=== PATIENT | male | born 1930 | race Caucasian/White ===

== ENCOUNTER 2019-06-18 16:38 | Inpatient (IN) | payer MEDICARE ==
[~2019-06-18] VITALS: Ht 160 cm; Wt 83.4 kg
[2019-06-18] MEDS ORDERED: LISI-538 PO (16:57)
[2019-06-18] MEDS ORDERED: ASPI81TA85 PO (16:57)
[2019-06-18] MEDS ORDERED: DOXY50TA9 PO (16:57)
[2019-06-18] MEDS ORDERED: IBUP-1022 PO (16:57)
[2019-06-18] MEDS ORDERED: SIMV40TA2 PO (16:57)
[2019-06-18] MEDS ORDERED: TERA5CAP3 PO (16:57)
[2019-06-18] MEDS ORDERED: METOCLOPRAMIDE INJ 10MG/2ML VIAL (J2765) IV ONE (17:45)
[2019-06-18] MEDS ORDERED: NS 1,000 ML IV SCH (17:45)
[2019-06-18 17:58] LABS: INR 1.3; PROTHROMBIN TIME 15.9 SECONDS (11.8-14.0)
[2019-06-18] MEDS ORDERED: FISH1000 PO (18:23)
--- NOTE | 2019-06-18 18:39 | REPVR ---
EXAM: CT Head Without Contrast EXAM DATE/TIME: 06/18/2019 6:01 PM CLINICAL HISTORY: 89 years old, male; Pain; Headache; Additional info: AMS TECHNIQUE: Imaging protocol: Computed tomography images of the head without contrast. Radiation optimization: All CT scans at this facility use at least one of these dose optimization techniques: automated exposure control; mA and/or kV adjustment per patient size (includes targeted exams where dose is matched to clinical indication); or iterative reconstruction. COMPARISON: No relevant prior studies available. FINDINGS: Asymmetric left parieto-occipital focal extracranial soft tissue swelling. Prominent ventricles and CSF spaces suggest parenchymal volume loss. No intracranial mass, focal mass effect or midline shift. No acute intracranial hemorrhage. Mild decreased attenuation in periventricular/centrum semiovale white matter. No focal effacement of cortical sulci to indicate acute cortical infarct. No calvarial fracture or destructive process. Left maxillary sinus mucosal thickening is present. Mastoid air cells are normally aerated. Visualized globes and orbits are unremarkable. IMPRESSION: Left parieto-occipital scalp hematoma No acute intracranial abnormality. Atrophy and chronic microangiopathic change in supratentorial white matter. Electronically signed by: Gian Dial On 06/18/2019 18:39:30 PM
--- NOTE | 2019-06-18 18:43 | REPVR ---
EXAM: CT Cervical Spine Without Contrast EXAM DATE/TIME: 06/18/2019 6:01 PM CLINICAL HISTORY: 89 years old, male; Neck pain; Additional info: Fall AMS TECHNIQUE: Imaging protocol: Computed tomography images of the cervical spine without contrast. Coronal and sagittal reformatted images were created and reviewed. Radiation optimization: All CT scans at this facility use at least one of these dose optimization techniques: automated exposure control; mA and/or kV adjustment per patient size (includes targeted exams where dose is matched to clinical indication); or iterative reconstruction. COMPARISON: No relevant prior studies available. FINDINGS: Vertebrae: No traumatic segmental malalignment of cervical spine or craniocervical junction. Vertebral body height is maintained at all levels. No acute fracture. No destructive or blastic cervical spine osseous lesion. Discs/Spinal canal/Neural foramina: Intervertebral disc height is decreased at multiple levels, with typical degenerative pattern and associated endplate, articular pillar and uncovertebral spurs. 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 Prevertebral Space: Prevertebral soft tissues demonstrate no asymmetry. Soft tissues: Unremarkable. Lungs: No concerning abnormality of the imaged lung apices. IMPRESSION: 1. No acute fracture or traumatic subluxation of the cervical spine. 2. Multilevel degenerative disc and articular pillar arthropathy. Electronically signed by: Gian Dial On 06/18/2019 18:42:35 PM
[2019-06-18 18:54] LABS: BASO % 0.1 % (0.0-1.0); EOS % 0.1 % (0.0-3.0); LYMPH # 1.1 10^3/uL (1.5-4.5); LYMPH % 6.2 % (24.0-44.0); MEAN CORPUSCULAR HEMOGLOBIN 31.3 pg (27.0-33.0); MEAN CORPUSCULAR HGB CONC 32.6 g/dl (32.0-36.5); MEAN CORPUSCULAR VOLUME 96.2 fl (80.0-96.0); MONO # 1.7 10^3/uL (0.0-0.8); MONO % 9.5 % (0.0-5.0); NEUTROPHILS # 14.6 10^3/uL (1.8-7.7); NEUTROPHILS % 83.6 % (36.0-66.0); PLATELET COUNT, AUTOMATED 243 10^3/uL (150-450); RED BLOOD COUNT 4.47 10^6/uL (4.30-6.10); WHITE BLOOD COUNT 17.5 10^3/uL (4.0-10.0)
[2019-06-18 19:54] LABS: ALBUMIN 3.2 GM/DL (3.2-5.2); ALT/SGPT 57 U/L (12-78); BILIRUBIN,DIRECT 0.1 MG/DL (0.0-0.2); BILIRUBIN,TOTAL 0.4 MG/DL (0.2-1.0); BLOOD UREA NITROGEN 135 MG/DL (7-18); CALCIUM LEVEL 8.5 MG/DL (8.8-10.2); CARBON DIOXIDE LEVEL 16 MEQ/L (21-32); CHLORIDE LEVEL 115 MEQ/L (98-107); CK-MB VALUE MASS 40.7 NG/ML (<3.6); CPK CREATINE PHOSPHOKINASE 3840 U/L (39-308); GLOMERULAR FILTRATION RATE 6.5 (>35); GLUCOSE, FASTING 103 MG/DL (70-100); MB/CK RELATIVE INDEX 1.06 (< OR =4); POTASSIUM SERUM 5.6 MEQ/L (3.5-5.1); SODIUM LEVEL 146 MEQ/L (136-145); TOTAL PROTEIN 7.3 GM/DL (6.4-8.2); TROPONIN I < 0.02 NG/ML (< 0.10)
--- NOTE | 2019-06-18 20:34 | HPEPDOC ---
[facility] Medical History & Physical Date of Admission Jun 18, 2019 Date of Service: Jun 18, 2019 Primary Care Physician: VICKI MURCIA MD [facility] Attending Physician: PURNIMA ANTONY MD History and Physical Time of service 10:45 PM CHIEF COMPLAINT: Fall HISTORY OF PRESENT ILLNESS: Mr. Richardson is an 81 atrial male who was brought to the ED by the ambulance after his neighbors found him on the ground. According to his daughter he likely had a fall sometime in between 8 and 9 AM this morning, which is a time but usually goes into the shower, and was found on the shower floor covered with emesis and urine about 6 hours later. Though he has lapses in his memory regarding the events that occurred earlier on today, the patient remembers tripping, hitting his head on one of the stairs going into the shower, and not being able to get up. The patient lives on his own, at his baseline he ambulates with a rolling walker. He denies having any abdominal pain, headaches, dizziness, upper respiratory tract symptoms, nausea, vomiting, diarrhea, chest pain, fevers, chills, peters dizziness yesterday over the last few days. REVIEW OF SYSTEMS: 12 point review of systems negative except as listed in HPI PAST MEDICAL /SURGICAL HISTORY: 1. Chronic hypertension. 2. Osteoarthritis/chronic back pain/unsteady gait. 3. Hearing loss. 4. Other medical problems, which the family is unable to name but they denied knowledge that the patient has DM, CAD, or CVD 5. BPH ? 6. Early Dementia SOCIAL HISTORY: Independent with ADLs. Require some assistance with IADLs. Lives in a seniors building independently half of the year and then moves to [place] with his daughter for the other half of the year Quit smoking in the 50s FAMILY HISTORY: CAD Alzheimer's. Stomach cancer. Diabetes ALLERGIES: Please see below. HOME MEDICATIONS: Please see below. PHYSICAL EXAMINATION: VITAL SIGNS: Temperature 90.7, pulse 100, respiratory rate 20, blood pressure 107/53, pulse oximetry 99% on room air GENERAL APPEARANCE: Well-nourished, well-developed, appears stated age, not in apparent distress HEENT: Normocephalic, atraumatic, mucous membranes slightly dry CARDIOVASCULAR: Heart rate has regular rate and rhythm. There are no murmurs, rubs or gallops. Radial pulses are intact. The extremities are warm and well- perfused. There is no lower extremity edema LUNGS: She is not using accessory muscles, there is normal air entry bilaterally, the lungs are clear to auscultation bilaterally on room air ABDOMEN: There are positive bowel sounds, the abdomen is soft and nontender on palpation MUSCULOSKELETAL: Range of motion is intact in all 4 extremities NEUROLOGICAL: Cranial nerves II-12 are grossly intact except for auditory nerves, speech is not dysarthric PSYCHIATRIC: The patient is alert and oriented to person and place but not time. He thinks it's February and is not able to name the year. He is able to understand and follow all commands, but requires frequent prompting which his family attributes to not having his hearing aids in LABORATORY DATA: CBC is remarkable for WBC count of 17.5 Chemistries remarkable for sodium of 146, potassium of 5.6, chloride 115, carbon dioxide of 16, BUN of 135, creatinine of 8.3, GFR of 6.5, glucose of 103, calcium of 8.5, AST 105, and CK of greater than 3800. IMAGING: CT of the head showed " Left parieto-occipital scalp hematoma. No acute intracranial abnormality. Atrophy and chronic microangiopathic change in supratentorial white matter." CT of the cervical spine showed " 1. No acute fracture or traumatic subluxation of the cervical spine. 2. Multilevel degenerative disc and articular pillar arthropathy." Chest x-ray was personally visualized and showed an obesity at the left upper lobe, but the final read is pending MICROBIOLOGY: Please see below. ASSESSMENT: Mr. Richardson is an 89-year-old male with a past medical history of chronic hypertension, chronic osteoarthritis with unsteady gait, and hearing loss will be admitted for management of acute renal failure secondary to rhabdomyolysis after having a mechanical fall. PLAN: 1. Left parietal occipital hematoma 2/2 Mechanical Fall At his baseline the patient has Unsteady Gait & OA CT of the head and cervical spine were reviewed Plan: Admit to PCU/ /fall precautions/ physical therapy consult to determine if he needs inpatient rehabilitation versus placement in an assisted living fac ility 2. AMS - resolving According to the patient's family has early dementia, shuffling gait and urinary continence Immediately after the fall earlier on today he seemed slightly slower mentally , but this is resolving CT of the head did not mention hydrocephalus. Plan: frequent neuro checks / can follow-up with PCP for Neurocognitive testing ie MoCA 3. Acute Renal Failure 2/2 Rhabdomyolysis It is unclear if the patient has CKD The only other creatinine in our EMR is 1.1 in February 2010 The creatinine today is 8.30, BUN is under 35, GFR 6.5, calcium is 8.5 The UA did not show proteinuria or hyaline casts The urine drug screen is unremarkable Plan: continue with IVF / f/u Phosphorous, 25 Vitamin D, Hepatitis Panel, PTH, Ulytes for FENa, UPro:Cr ratio, ulytes for FENa, renal US / hold ACEIs / the day time team can attempt to obtain records from the patient's PCP and decide if a Nephrology consult is warranted pending repeat BMP and CPK in the morning 4. Mild Hyperkalemia 2/2 MURIEL EKG did not mention peaked T waves Plan: Telemetry / treat MURIEL / f/u repeat BMP in the morning 5.Lactic acidosis 2/2 likely 2/2 reduced clearance due to renal dysfunction Plan: IVF / f/u repeat lactic acid 6. Possible UTI / Urinary Incontinence Has leukocytosis UA + for WBCs and Leuk esterase Plan: will ask nursing staff to place a [place] catheter / Levofloxacin 250mg IV Q48H / f/u UCx / c/w alpha agonist for possible BPH ? 7. Chronic HTN Plan: c/w home meds 8.Dementia Patient also has hearing loss and impaired vision which predispose him to disorientation/delerium during this hospital admission Plan: family will bring the patient's hearing aides and glasses tomorrow morning DVT Px w Heparin Dispo: possible placement in assited living facility vs NH pending clinical course Vital Signs Vital Signs Date Time Temp Pulse Resp B/P (MAP) Pulse Ox O2 Delivery O2 Flow Rate FiO2 06/18/19 20:15 98 112/59 (76) 98 06/18/19 19:15 20 Room Air 06/18/19 17:28 97.0 Laboratory Data Labs 24H Laboratory Tests 2 06/18/19 17:12: Prothrombin Time 15.9H, Prothromb Time International Ratio 1.30 06/18/19 17:35: Bedside Glucose (Misc Panel) 99 06/18/19 18:47: Immature Granulocyte % (Auto) 0.5, White Blood Count 17.5H, Red Blood Count 4. 47, Hemoglobin 14.0, Hematocrit 43.0, Mean Corpuscular Volume 96.2H, Mean Corpuscular Hemoglobin 31.3, Mean Corpuscular Hemoglobin Concent 32.6, Red Cell Distribution Width 13.6, Platelet Count 243, Neutrophils (%) (Auto) 83.6H, Lymphocytes (%) (Auto) 6.2L, Monocytes (%) (Auto) 9.5H, Eosinophils (%) (Auto) 0.1, Basophils (%) (Auto) 0.1, Neutrophils # (Auto) 14.6H, Lymphocytes # (Auto) 1.1L, Monocytes # (Auto) 1.7H, Eosinophils # (Auto) 0.0, Basophils # (Auto) 0.0, Nucleated Red Blood Cells % (auto) 0.0, Anion Gap 15, Glomerular Filtration Rate 6.5L, Calcium Level 8.5L, Aspartate Amino Transf (AST/SGOT) 105H, Alanine Aminotransferase (ALT/SGPT) 57, Alkaline Phosphatase 83, Total Bilirubin 0.4, Direct Bilirubin 0.1, Total Creatine Kinase 3840H, Creatine Kinase MB 40.7H, Creatine Kinase MB Relative Index 1.06, Troponin I < 0.02, Total Protein 7.3, Albumin 3.2, Albumin/Globulin Ratio 0.78L, Thyroid Stimulating Hormone (TSH) 2.880, Ethyl Alcohol Level < 0.003 06/18/19 20:08: Urine Color YELLOW, Urine Appearance CLEAR, Urine pH 5.0, Urine Specific [place]addock 1.009, Urine Protein NEGATIVE, Urine Glucose (UA) NEGATIVE, Urine Ketones TRACEH, Urine Blood 2+H, Urine Nitrite NEGATIVE, Urine Bilirubin NEGATIVE, Urine Urobilinogen 0.2, Urine Leukocyte Esterase 1+H, Urine WBC (Auto) 18H, Urine RBC (Auto) 23H, Urine Hyaline Casts (Auto) 0, Urine Bacteria (Auto) NEGATIVE, Urine Squamous Epithelial Cells 0, Urine Sperm (Auto) CBC/BMP Laboratory Tests 06/18/19 18:47 Red Blood Count 4.47, Mean Corpuscular Volume 96.2 H, Mean Corpuscular Hemoglobin 31.3, Mean Corpuscular Hemoglobin Concent 32.6, Red Cell Distribution Width 13.6, Neutrophils (%) (Auto) 83.6 H, Lymphocytes (%) (Auto) 6.2 L, Monocytes (%) (Auto) 9.5 H, Eosinophils (%) (Auto) 0.1, Basophils (%) (Auto) 0.1, Neutrophils # (Auto) 14.6 H, Lymphocytes # (Auto) 1.1 L, Monocytes # (Auto) 1.7 H, Eosinophils # (Auto) 0.0, Basophils # (Auto) 0.0 Microbiology Microbiology 06/18/19 Urine Culture, Received Pending Home Medications Scheduled Doxycycline Monohydrate (Doxycycline Monohydrate) 50 Mg Tablet, 50 MG PO DAILY Lisinopril (Lisinopril) 20 Mg Tablet, 20 MG PO DAILY Cobb-3 Fatty Acids/Fish Oil (Fish Oil 1,000 mg Capsule) 1 Each Capsule, 1,000 MG PO DAILY Simvastatin (Simvastatin) 40 Mg Tablet, 40 MG PO DAILY Terazosin HCl (Terazosin HCl) 5 Mg Capsule, 5 MG PO DAILY Scheduled PRN Ibuprofen (Ibuprofen) 600 Mg Tablet, 600 MG PO TID PRN for PAIN Allergies Coded Allergies: No Known Allergies (Unverified , 06/18/19) A-FIB/CHADSVASC A-FIB History Current/History of A-Fib/PAF?: No Current PO Anticoag Therapy: No PURNIMA ANTONY MD Jun 18, 2019 20:34
[2019-06-18 20:45] LABS: AMPHETAMINES LEVEL URINE NEGATIVE (NEGATIVE); BARBITURATES URINE NEGATIVE (NEGATIVE); BENZODIAZEPINES URINE NEGATIVE (NEGATIVE); CANNABINOIDS URINE NEGATIVE (NEGATIVE); COCAINE METABOLITE URINE NEGATIVE (NEGATIVE); METHADONE URINE NEGATIVE (NEGATIVE); OPIATES URINE NEGATIVE (NEGATIVE); PHENCYCLIDINE URINE NEGATIVE (NEGATIVE)
[2019-06-18] MEDS: NS 1,000 ML IV SCH (21:27)
[2019-06-18] MEDS: HEPARIN SOD (PORCINE) 5000 UNITS/ML VIAL SC SCH (21:47)
--- NOTE | 2019-06-18 21:52 | ECGEPIP ---
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
[2019-06-18 23:20] VITALS: BP 157/67
[2019-06-19] MEDS ORDERED: IBUPROFEN 600 MG TAB PO PRN
[2019-06-19 01:07] LABS: PHOSPHORUS LEVEL 8.5 MG/DL (2.5-4.9)
[2019-06-19] MEDS: NS 1,000 ML IV SCH (01:29)
[2019-06-19] MEDS: LevoFLOXacin IV 250 MG in APPROPRIATE DILUENT 1 EA IV SCH (01:29)
[2019-06-19] MEDS: TAMSULOSIN 0.4 MG CAP PO SCH ×2 (01:29→21:20)
[2019-06-19 04:00] VITALS: BP 117/55
[2019-06-19 06:03] LABS: HEMATOCRIT 36.6 % (42.0-52.0); MEAN CORPUSCULAR HEMOGLOBIN 30.6 pg (27.0-33.0); MEAN CORPUSCULAR HGB CONC 31.7 g/dl (32.0-36.5); MEAN CORPUSCULAR VOLUME 96.6 fl (80.0-96.0); PLATELET COUNT, AUTOMATED 179 10^3/uL (150-450); RED BLOOD COUNT 3.79 10^6/uL (4.30-6.10)
[2019-06-19 06:07] LABS: HEMOGLOBIN 11.6 g/dl (13.5-17.5)
[2019-06-19 06:37] LABS: ALBUMIN 2.6 GM/DL (3.2-5.2); ALT/SGPT 51 U/L (12-78); BILIRUBIN,TOTAL 0.3 MG/DL (0.2-1.0); BLOOD UREA NITROGEN 143 MG/DL (7-18); CALCIUM LEVEL 7.7 MG/DL (8.8-10.2); CARBON DIOXIDE LEVEL 13 MEQ/L (21-32); CHLORIDE LEVEL 122 MEQ/L (98-107); CPK CREATINE PHOSPHOKINASE 3669 U/L (39-308); CREATININE FOR GFR 8.33 MG/DL (0.70-1.30); GLOMERULAR FILTRATION RATE 6.5 (>35); GLUCOSE, FASTING 91 MG/DL (70-100); POTASSIUM SERUM 5.8 MEQ/L (3.5-5.1); SODIUM LEVEL 150 MEQ/L (136-145); TOTAL PROTEIN 5.6 GM/DL (6.4-8.2)
--- NOTE | 2019-06-19 07:42 | REPVR ---
EXAM: US Retroperitoneal Limited, Kidneys EXAM DATE/TIME: 06/19/2019 6:34 AM CLINICAL HISTORY: 89 years old, male; Condition or disease; Other: Victoriano TECHNIQUE: Imaging protocol: Real-time ultrasound of the retroperitoneum with image documentation. Examination was focused on the kidneys. COMPARISON: No relevant prior studies available. FINDINGS: Urinary bladder: The bladder is distended with no abnormal wall thickening. Layering posterior material seen in the urinary bladder. There is focal outpouching at the urinary bladder dome. Right kidney: The right kidney measures 10.9 x 5.4 x 5.4 cm. There is moderate right-sided hydronephrosis. The right renal cortical parenchymal echogenicity is within normal limits. There is normal right renal mass, stone or cyst. Left kidney: There is limited visualization of the left kidney. The left kidney measures 10.2 x 3.8 x 4.9 cm. There is no gross left renal mass, stone or hydronephrosis. IMPRESSION: 1. Moderate right-sided hydronephrosis. 2. Posterior urinary bladder layering filling defect/sediments/debris. This could represent blood among other complex material. Correlate clinically for hematuria. Other underlying etiologies cannot be excluded. Followup is suggested. 3. urinary bladder dome/fundus diverticulum versus ureterocele. If clinically indicated further evaluation with CT urogram may be obtained COMMENT: Consistent with the [employer]'s Incidental Findings Committee Report (J Am Dorian Radiol 2010): Unless the patient's specific circumstances suggest otherwise, any liver lesion 0.5 cm or less, any cystic kidney lesion less than 1.0 cm, and/or any adrenal lesion 1.0 cm or less not otherwise characterized in this report as possessing suspicious or indeterminate imaging features is/are highly likely to be benign and do not require follow-up imaging or biopsy. Electronically signed by: Gideon Horton On 06/19/2019 07:42:35 AM
[2019-06-19 08:00] VITALS: BP 131/70
[2019-06-19] MEDS ORDERED: SIMVASTATIN 40 MG TAB PO SCH (09:00)
[2019-06-19] MEDS: HEPARIN SOD (PORCINE) 5000 UNITS/ML VIAL SC SCH ×2 (09:00→21:20)
--- NOTE | 2019-06-19 09:20 | REP ---
CHEST: Single view. There is no evidence of acute infiltrate. No pleural effusion is seen. The heart is normal in size. The mediastinal silhouette is unremarkable. The visualized osseous structures are intact. IMPRESSION: No acute pulmonary disease. Electronically Signed by Rajiv Gauthier MD 06/19/2019 10:13 A
[2019-06-19 11:06] LABS: TOTAL 25(OH) VITAMIN D 8.9 NG/ML (30.0-100.0)
[2019-06-19 11:07] LABS: PTH INTACT 384.6 PG/ML (18.5-88.0)
--- NOTE | 2019-06-19 11:17 | IPNPDOC ---
Text Note Date of Service The patient was seen on 06/19/19. NOTE Subjective: Patient seen and examined at bedside. No acute overnight events reported. Patient just finished working with PT. No new medical complaints. States he is feeling better. Objective: General: NAD, lying in chair comfortably, elderly HEENT: NC/AT, EOMI Lungs: CTA B/L Heart: +S1S2, RRR Abd: soft, NT, +BS ASSESSMENT/PLAN: 89-year-old male with a past medical history of chronic hypertension, chronic osteoarthritis with unsteady gait, and hearing loss admitted for management of acute renal failure secondary to rhabdomyolysis after having a mechanical fall. #MURIEL - US shows right hydro, and other abnormalities - urology c/s pending - IV fluids - baseline creatinine unknown #Rhabdomyolysis - continue with IVF - follow up labs - hold nephrotoxic meds #Left parietal occipital hematoma 2/2 Mechanical Fall - telemetry monitoring - At his baseline the patient has Unsteady Gait & OA CT of the head and cervical spine were reviewed - fall precautions/ PT #AMS with baseline dementia - resolving According to the patient's family has early dementia, shuffling gait and urinary continence CT of the head did not mention hydrocephalus. - neuro checks # Hyperkalemia 2/2 MURIEL #Lactic acidosis 2/2 likely 2/2 reduced clearance due to renal dysfunction - resolved # Possible UTI / Urinary Incontinence Has leukocytosis UA + for WBCs and Leuk esterase - levaquin, follow UCx #Chronic HTN - c/w home meds DVT Px w Heparin VS,Fishbone, I+O VS, Fishbone, I+O Laboratory Tests 06/18/19 18:47 Red Blood Count 4.47, Mean Corpuscular Volume 96.2 H, Mean Corpuscular Hemoglobin 31.3, Mean Corpuscular Hemoglobin Concent 32.6, Red Cell Distribution Width 13.6, Neutrophils (%) (Auto) 83.6 H, Lymphocytes (%) (Auto) 6.2 L, Monocyt es (%) (Auto) 9.5 H, Eosinophils (%) (Auto) 0.1, Basophils (%) (Auto) 0.1, Neutrophils # (Auto) 14.6 H, Lymphocytes # (Auto) 1.1 L, Monocytes # (Auto) 1.7 H, Eosinophils # (Auto) 0.0, Basophils # (Auto) 0.0 06/19/19 05:34 Red Blood Count 3.79 L, Mean Corpuscular Volume 96.6 H, Mean Corpuscular Hemoglobin 30.6, Mean Corpuscular Hemoglobin Concent 31.7 L, Red Cell Distribution Width 13.9, Calcium Level 7.7 L, Aspartate Amino Transf (AST/SGOT) 92 H, Alanine Aminotransferase (ALT/SGPT) 51, Total Creatine Kinase 3669 H, Alkaline Phosphatase 68, Total Bilirubin 0.3, Total Protein 5.6 #L, Albumin 2.6 L Vital Signs Date Time Temp Pulse Resp B/P (MAP) Pulse Ox O2 Delivery O2 Flow Rate FiO2 06/19/19 08:00 97.0 102 18 131/70 (90) 98 06/18/19 22:46 Room Air I&O- Last 24 Hours up to 6 AM 06/19/19 06:00 Intake Total 590 ml Balance 590 ml ZBIGNIEW VARELA MD Jun 19, 2019 11:17
[2019-06-19] MEDS ORDERED: D5W/0.45% SODIUM CHLORIDE 1,000 ML IV SCH (11:30)
[2019-06-19 12:00] VITALS: BP 129/55
[2019-06-19] MEDS: FINASTERIDE 5 MG TAB PO SCH (14:02)
[2019-06-19] MEDS: SODIUM BICARBONATE 50 MEQ in D5W 1,000 ML IV SCH ×2 (15:30→23:43)
[2019-06-19 16:00] VITALS: BP 131/60
--- NOTE | 2019-06-19 16:04 | CR.PDOC ---
General Date of Consultation: Jun 19, 2019 Consultation REASON FOR CONSULTATION/CHIEF COMPLAINT: Right hydronephrosis. HISTORY OF PRESENT ILLNESS: 89-year-old male who was admitted yesterday for a fall in his home. Patient was found to have a contusion involving his head. Patient was found to have acute renal failure with a creatinine of 8.3. Patient was found to have rhabdomyolysis. A renal ultrasound reported right hydronephrosis. A CT scan of the abdomen and pelvis was reviewed. There appears to be a right extrarenal pelvis. No obstructing ureteral calculi were seen. Patient is a poor historian and is able to offer very little history. He denies abdominal or flank pain. He denies hematuria. He denies a history of stone disease. He denies voiding symptoms. A Malcolm catheter is currently in place. ALLERGIES: Please see below. HOME MEDICATIONS: Please see below. PAST MEDICAL HISTORY: 1. Hypertension. 2. Early dementia. PAST SURGICAL HISTORY: Denies SOCIAL HISTORY: Unable to obtain REVIEW OF SYSTEMS: Review of systems from the history and physical were reviewed and noncontributory. Patient is unable to report a history for review of systems Physical examination: GENERAL APPEARANCE: Well-nourished, well-developed, appears stated age, not in apparent distress HEENT: Normocephalic, atraumatic, mucous membranes slightly dry CARDIOVASCULAR: There is no lower extremity edema LUNGS: No respiratory distress ABDOMEN: There are positive bowel sounds, the abdomen is soft and nontender on palpation : Penis uncircumcised with a Malcolm catheter in place. Urine is clear. A large left spermatocele is present. Testes are normal. Rectal examination is deferred. MUSCULOSKELETAL: Range of motion is intact in all 4 extremities PSYCHIATRIC: The patient is alert and oriented to person and place but not time LABORATORY DATA: Please see below. ASSESSMENT/PLAN: 1. Patient likely has a right extrarenal pelvis which is mildly dilated with no significant hydronephrosis. This is likely chronic. 2. Patient has a questionable history of benign prostatic hypertrophy and currently has a Malcolm catheter in place. Once patient's BUN/creatinine have stabilized and he is stable medically patient should be given a voiding trial. 3. Acute renal failure most likely secondary to rhabdomyolysis. Suggest nephrology consultation. Vital Signs/I&O Vital Signs Date Time Temp Pulse Resp B/P (MAP) Pulse Ox O2 Delivery O2 Flow Rate FiO2 06/19/19 12:00 97.4 102 18 129/55 (79) 99 06/18/19 22:46 Room Air I&O- Last 24 Hours up to 6 AM 06/19/19 06:00 Intake Total 590 ml Balance 590 ml Laboratory Data Labs 24H Laboratory Tests 2 06/18/19 17:12: Prothrombin Time 15.9H, Prothromb Time International Ratio 1.30 06/18/19 17:35: Bedside Glucose (Misc Panel) 99 06/18/19 18:47: Immature Granulocyte % (Auto) 0.5, White Blood Count 17.5H, Red Blood Count 4.47, Hemoglobin 14.0, Hematocrit 43.0, Mean Corpuscular Volume 96.2H, Mean Corpuscular Hemoglobin 31.3, Mean Corpuscular Hemoglobin Concent 32.6, Red Cell Distribution Width 13.6, Platelet Count 243, Neutrophils (%) (Auto) 83.6H, Lymphocytes (%) (Auto) 6.2L, Monocytes (%) (Auto) 9.5H, Eosinophils (%) (Auto) 0.1, Basophils (%) (Auto) 0.1, Neutrophils # (Auto) 14.6H, Lymphocytes # (Auto) 1.1L, Monocytes # (Auto) 1.7H, Eosinophils # (Auto) 0.0, Basophils # (Auto) 0.0, Nucleated Red Blood Cells % (auto) 0.0, Anion Gap 15, Glomerular Filtration Rate 6.5L, Calcium Level 8.5L, Phosphorus Level 8.5H, Aspartate Amino Transf (AST/SGOT) 105H, Alanine Aminotransferase (ALT/SGPT) 57, Alkaline Phosphatase 83, Total Bilirubin 0.4, Direct Bilirubin 0.1, Total Creatine Kinase 3840H, Cre atine Kinase MB 40.7H, Creatine Kinase MB Relative Index 1.06, Troponin I < 0.02, Total Protein 7.3, Albumin 3.2, Albumin/Globulin Ratio 0.78L, 25-Hydroxy Vitamin D Total 8.9L, Thyroid Stimulating Hormone (TSH) 2.880, Parathyroid Hormone (Intact) 384.6H, Ethyl Alcohol Level < 0.003 06/18/19 20:08: Urine Color YELLOW, Urine Appearance CLEAR, Urine pH 5.0, Urine Specific [place] 1.009, Urine Protein NEGATIVE, Urine Glucose (UA) NEGATIVE, Urine Ketones TRACEH, Urine Blood 2+H, Urine Nitrite NEGATIVE, Urine Bilirubin NEGATIVE, Urine Urobilinogen 0.2, Urine Leukocyte Esterase 1+H, Urine WBC (Auto) 18H, Urine RBC (Auto) 23H, Urine Hyaline Casts (Auto) 0, Urine Bacteria (Auto) NEGATIVE, Urine Squamous Epithelial Cells 0, Urine Sperm (Auto) , Urine Amphetamines Screen NEGATIVE, Urine Benzodiazepines Screen NEGATIVE, Urine Opiates Screen NEGATIVE, Urine Methadone Screen NEGATIVE, Urine Barbiturates Screen NEGATIVE, Urine Phencyclidine Screen NEGATIVE, Urine Cocaine Metabolite Screen NEGATIVE, Urine Cannabinoids Screen NEGATIVE 06/19/19 05:34: Nucleated Red Blood Cells % (auto) 0.0, Anion Gap 15, Glomerular Filtration Rate 6.5L, Lactic Acid Level 1.7, Blood Urea Nitrogen 143H, Creatinine 8.33*H, Sodium Level 150H, Potassium Level 5.8H, Chloride Level 122H, Carbon Dioxide Level 13L, Calcium Level 7.7L, Aspartate Amino Transf (AST/SGOT) 92H, Alanine Aminotransferase (ALT/SGPT) 51, Total Creatine Kinase 3669H, Alkaline Phosphatase 68, Total Bilirubin 0.3, Total Protein 5.6#L, Albumin 2.6L, Albumin/Globulin Ratio 0.87L CBC/BMP Laboratory Tests 06/18/19 18:47 Red Blood Count 4.47, Mean Corpuscular Volume 96.2 H, Mean Corpuscular Hemoglobin 31.3, Mean Corpuscular Hemoglobin Concent 32.6, Red Cell Distribution Width 13.6, Neutrophils (%) (Auto) 83.6 H, Lymphocytes (%) (Auto) 6.2 L, Monocytes (%) (Auto) 9.5 H, Eosinophils (%) (Auto) 0.1, Basophils (%) (Auto) 0.1, Neutrophils # (Auto) 14.6 H, Lymphocytes # (Auto) 1.1 L, Monocytes # (Auto) 1.7 H, Eosinophils # (Auto) 0.0, Basophils # (Auto) 0.0 06/19/19 05:34 Red Blood Count 3.79 L, Mean Corpuscular Volume 96.6 H, Mean Corpuscular Hemoglobin 30.6, Mean Corpuscular Hemoglobin Concent 31.7 L, Red Cell Distribution Width 13.9, Calcium Level 7.7 L, Aspartate Amino Transf (AST/SGOT) 92 H, Alanine Aminotransferase (ALT/SGPT) 51, Total Creatine Kinase 3669 H, Alkaline Phosphatase 68, Total Bilirubin 0.3, Total Protein 5.6 #L, Albumin 2.6 L Microbiology Microbiology 06/18/19 Urine Culture, Received Pending Allergies Coded Allergies: No Known Allergies (Unverified , 06/18/19) Home Medications Scheduled Doxycycline Monohydrate (Doxycycline Monohydrate) 50 Mg Tablet, 50 MG PO DAILY, (Reported) Lisinopril (Lisinopril) 20 Mg Tablet, 20 MG PO DAILY, (Reported) [place]-3 Fatty Acids/Fish Oil (Fish Oil 1,000 mg Capsule) 1 Each Capsule, 1,000 MG PO DAILY, (Reported) Simvastatin (Simvastatin) 40 Mg Tablet, 40 MG PO DAILY, (Reported) Terazosin HCl (Terazosin HCl) 5 Mg Capsule, 5 MG PO DAILY, (Reported) Scheduled PRN Ibuprofen (Ibuprofen) 600 Mg Tablet, 600 MG PO TID PRN for PAIN, (Reported) Lele Daly MD Jun 19, 2019 16:04
--- NOTE | 2019-06-19 17:16 | REP ---
HISTORY: Abdominal pain and right-sided hydronephrosis seen on previous ultrasound obtained earlier today. The lack of intravenous contrast decreases the sensitivity of the exam. In addition, there is motion artifact throughout the examination from respirations and the patient's arms are strewn about the abdomen causing spray artifact. The lung bases show a small left pleural effusion and a left basilar patchy opacity. There is no pericardial effusion. Limited evaluation of the liver and spleen show no gross abnormalities. Limited evaluation of the gallbladder, pancreas, and adrenal glands show no gross abnormalities. There is mild to moderate right-sided hydronephrosis and hydroureter, but the hydroureter can be followed throughout the course of the ureter right to the level of the ureterovesical junction. There is a Malcolm balloon catheter decompressing the urinary bladder. There is air density in the urinary bladder likely secondary to recent instrumentation. There is no nephroureterolithiasis. Calcific atherosclerotic changes seen in the abdominal aorta. There are multiple gas filled loops of small bowel throughout the abdomen. The descending colon is for the most part collapsed as is the sigmoid colon. There is gas and stool in the rectum. There is no evidence of free fluid or free air in the abdomen or pelvis. Bone window technique throughout the exam shows the bones to be demineralized with chronic hip, sacroiliac joint, and spinal degenerative changes. IMPRESSION: 1. Lung base findings as described above. 2. Early SBO versus ileus. 3. Right-sided hydronephrosis and hydroureter. 4. Other findings and chronic changes as described above. Electronically Signed by Andrey Perez DO 06/20/2019 10:29 A
[2019-06-19 19:17] LABS: ALBUMIN 2.6 GM/DL (3.2-5.2); CREATININE FOR GFR 6.54 MG/DL (0.70-1.30); GLOMERULAR FILTRATION RATE 8.6 (>35); PHOSPHORUS LEVEL 5.1 MG/DL (2.5-4.9); POTASSIUM SERUM 5.4 MEQ/L (3.5-5.1)
[2019-06-19 20:00] VITALS: BP 133/63
[2019-06-19 23:59] VITALS: BP 131/57
--- NOTE | 2019-06-20 00:17 | CR ---
DATE OF CONSULTATION: 06/19/2019 REQUESTING PHYSICIAN: Dr. Gary Osman CONSULTING PHYSICIAN: Dr. Jon REASON FOR CONSULTATION: Management of acute renal failure, hyperkalemia and metabolic acidosis. CHIEF COMPLAINT: The patient presented to the hospital yesterday after a fall. HISTORY OF PRESENT ILLNESS: Mr. Gary Richardson is an 89-year-old male with a history of dementia, hypertension, chronic bilateral hearing loss. Past medical history is not well known; the patient himself is a poor historian. He was brought to the emergency room yesterday because he was found on the ground by his neighbors. The patient himself does not remember what happened to him. He remembers waking up in the hospital. As per medical records and documentation, he was found in his vomiting and urine on the floor, and he was on the floor at least for 6 hours. He was admitted under the hospitalist service. He was started on IV fluid hydration. The patient was in renal failure on arrival with a creatinine of 8.3 and a BUN of 135. He was also hyperkalemic with a potassium of 5.6. Nephrology service was called for further help in the management of acute renal failure. Of note, since the patient was on the floor for a few hours, he was found to have rhabdomyolysis with a CPK of 3840. I saw and evaluated the patient at the bedside. He was actually sitting in a recliner. He was otherwise afebrile and hemodynamically stable. PAST MEDICAL HISTORY: Past medical history of hypertension, history of osteoarthritis and unsteady gait, hearing loss, history of BPH and dementia. PAST SURGICAL HISTORY: Unknown prior surgical history. ALLERGIES: No known drug allergies. FAMILY HISTORY: There is a positive family history of diabetes and Alzheimer's disease. SOCIAL HISTORY: The patient lives at home. He is independent with his activities of daily life usually. He lives in a senior building. REVIEW OF SYSTEMS: Constitutional: Patient denies any fevers and chills. He does report weakness. Eyes: He denies any blurry vision or double vision. ENT: He denies any dysphagia, odynophagia. Cardiovascular: He denies any chest pain or palpitations. Respiratory: He reports mild shortness of breath. Gastrointestinal (GI): He denies any nausea or vomiting. Genitourinary: He does report pain in suprapubic region and difficult to urinate. Musculoskeletal: He reports muscle weakness. Skin: He denies any rashes or ulcers. Hematology/Oncology: He denies any easy bleeding or bruising. All other review of systems is negative. PHYSICAL EXAMINATION: General: The patient is awake, alert, oriented times two, sitting up in the sofa. in no apparent distress. Vital signs: Temperature is 97.4 degrees Fahrenheit, blood pressure 129/55, pulse is 102, respiratory rate of 18, saturating 99% on room air. Head and neck exam: Extraocular muscles intact. Pupils equally round and reactive to light. Mucous membranes are moist. Neck is supple. There is mildly elevated jugular venous distention (JVD). Cardiovascular: S1, S2, regular rate, 1+ edema of the bilateral lower extremities. Respiratory: Chest is clear to auscultation bilaterally. Bilateral equal air entry. No active rales or rhonchi. Abdomen: Soft. Positive bowel sounds. Moderate amount of tenderness in the suprapubic region. Genitourinary: No hernias were noted. Bladder is palpable in the suprapubic region. Musculoskeletal: No clubbing or cyanosis. Pulses are 2+ Central Nervous Systems (ASPHALT TAR AND GRAVEL ROOFER): No focal deficit. Power is 5/5 in bilateral upper extremities. LABORATORY REVIEW: CBC showed a WBC of 11, hemoglobin is 11.6, platelets are 179. INR is 1.3. Urinalysis showed trace ketones, 2+ blood, 1+ leukocyte esterase. BMP on arrival showed sodium 146, potassium 5.6, chloride 115, bicarbonate 16, BUN 135, creatinine is 8.3, glucose 103, phosphorus 8.5, CPK is 3840. PTH is 384. Urine toxicology is pending. Alcohol level is negative. Microbiology: Urine cultures are pending. IMAGING STUDIES: A renal ultrasound was done today, which showed moderate right-sided hydronephrosis. Posterior urinary bladder layering filling defect secondary to sediment or debris. CURRENT INPATIENT MEDICATIONS: The patient's medications were all reviewed by me. The patient was getting D5 half-normal saline at 90 mL an hour. He is on Levaquin 250 mg IV every 48 hours. I have started the patient on finasteride 5 mg by mouth daily. He is already on Flomax 0.5 mg by mouth nightly. He is on Zocor 40 mg by mouth daily. The patient is on as-needed ibuprofen; with renal failure, I am going to stop the ibuprofen at this time. ASSESSMENT: 89-year-old male status post fall. He was found on the floor with mild rhabdomyolysis, acute renal failure, hyperkalemia, non-anion gap metabolic acidosis. PLAN: 1. Acute nonoliguric renal failure. The patient clinically was in urinary retention. Bedside bladder scan was done by myself. There was more than 800 mL of urine in the bladder. Malcolm catheter placement was ordered. The patient's cause of renal failure is obstructive uropathy. Rhabdomyolysis is not the cause of acute renal failure. However, acute renal failure caused metabolic acidosis and electrolyte abnormality, which caused the patient to fall and have rhabdomyolysis. Mild rhabdomyolysis with a CPK of 3000 cannot cause such a severe renal failure. 2. Hyperkalemia. It is secondary to acute renal failure which in turn is caused by obstructive uropathy. I have changed the IV fluid. Hopefully once the patient's urine output improves, after relief of obstruction, potassium level will automatically improve. 3. Non-anion gap metabolic acidosis. It is secondary to acute renal failure. I have started the patient on D5W with 50 mEq of bicarbonate at 125 mL an hour. That will help improve patient's acidosis. Once serum bicarbonate level is more than 24, then IV bicarbonate will be stopped. 4. Hypernatremia. It is secondary to decreased oral intake and free water deficit, and the patient was on the floor for more than 6 hours. The patient should not be given isotonic fluids. I have changed the IV fluid to D5W with 50 mEq of bicarbonate only, so that the patient gets free water in the IV fluids. Sodium level is expected to improve over the next 24 hours. 5. Hyperphosphatemia. It is secondary to acute renal failure. No need of phosphorus binders at this time. Phosphorus level is expected to improve with improvement in the renal function. 6. Rhabdomyolysis. Rhabdomyolysis is secondary to fall, and the patient was on the floor for more than 6 hours. This rhabdomyolysis is very mild. CPK level is around 3000. This rhabdomyolysis is not causing the renal failure. Continue gentle IV fluid hydration. CPK level is expected to improve over the next few days. 7. Secondary hyperparathyroidism. It is secondary to renal failure and hyperphosphatemia. No need of calcimimetics at this time. PTH level is expected to improve with improvement in the renal function. 8. BPH and urinary retention. Malcolm catheter was placed today. Continue Flomax. I have also started the patient on finasteride. The patient needs to be seen by urology as outpatient for voiding trial. 9. Leukocytosis. The patient had a lot of debris on the urinary bladder ultrasound, which most likely caused urinary tract infection. Obstruction has been relieved. The patient is currently on IV Levaquin, which is adequate. White cell count is improving. It is down to 11,000 today. 10. Hyperlipidemia. The patient is being treated for mild rhabdomyolysis. Avoid use of Zocor at this time. 11. Muscle pains after fall. Avoid use of NSAID like ibuprofen in this patient who is recovering from acute renal failure. 12. Metabolic encephalopathy. It is secondary to multiple electrolyte and metabolic abnormalities, including hypernatremia, hyperkalemia, metabolic acidosis, uremia and hyperphosphatemia. These abnormalities are expected to improve over the next 24-48 hours with improvement in the renal function, and the patient's mental status would also improve. Thank you for involving me in the care of this patient. I shall be happy to follow the patient along with you tomorrow morning. Total critical care time spent in the management of this patient today, morning, at the bedside was 45 minutes excluding all the procedures. SANDRA
[2019-06-20 04:00] VITALS: BP 118/55
[2019-06-20 06:09] LABS: ALBUMIN 2.4 GM/DL (3.2-5.2); CALCIUM LEVEL 7.6 MG/DL (8.8-10.2); CREATININE FOR GFR 3.73 MG/DL (0.70-1.30); GLOMERULAR FILTRATION RATE 16.4 (>35); PHOSPHORUS LEVEL 3.7 MG/DL (2.5-4.9); POTASSIUM SERUM 4.8 MEQ/L (3.5-5.1)
[2019-06-20 07:38] LABS: HEMATOCRIT 33.1 % (42.0-52.0); HEMOGLOBIN 10.8 g/dl (13.5-17.5); MEAN CORPUSCULAR HEMOGLOBIN 30.9 pg (27.0-33.0); MEAN CORPUSCULAR HGB CONC 32.6 g/dl (32.0-36.5); MEAN CORPUSCULAR VOLUME 94.8 fl (80.0-96.0); PLATELET COUNT, AUTOMATED 159 10^3/uL (150-450); RED BLOOD COUNT 3.49 10^6/uL (4.30-6.10); WHITE BLOOD COUNT 7.6 10^3/uL (4.0-10.0)
--- NOTE | 2019-06-20 07:51 | REP ---
CT HEAD WITHOUT CONTRAST: HISTORY: Speech difficulty. COMPARISON: 06/18/2019. Areas of decreased attentuation are present in the periventricular white matter. This represents small vessel ischemic disease. There is no intraparenchymal hemorrhage, mass, or midline shift. The ventricular system and cortical sulci are dilated consistent with moderate volume loss. There is no extracerebral collection. There is no fracture. Soft tissue swelling is present overlying the left parietal lobe. Mucosal thickening is present in the ethmoid and maxillary sinuses. IMPRESSION: 1. Small vessel ischemic disease. 2. Moderate volume loss. Electronically Signed by Gary Merritt MD 06/20/2019 08:19 A
[2019-06-20 08:00] VITALS: BP 97/51
[2019-06-20] MEDS: HEPARIN SOD (PORCINE) 5000 UNITS/ML VIAL SC SCH (08:05)
[2019-06-20] MEDS: FINASTERIDE 5 MG TAB PO SCH (08:05)
[2019-06-20] MEDS: SODIUM BICARBONATE 50 MEQ in D5W 1,000 ML IV SCH ×2 (08:05→17:34)
--- NOTE | 2019-06-20 09:42 | IPNPDOC ---
Date Seen The patient was seen on 06/20/19. Progress Note SUBJECTIVE: A note from nephrology was available stating patient had a postvoid residual of 800 mL and a Malcolm catheter was inserted at that time. Patient offers no complaints OBJECTIVE PHYSICAL EXAMINATION: VITAL SIGNS: Please see below. Abdomen soft nontender, Malcolm catheter in place draining clear urine. Creatinine 3.73 LABORATORY DATA, IMAGING STUDIES, MICROBIOLOGY: Please see below. ASSESSMENT AND PLAN: 89-year-old male with a history of acute urinary retention and obstructive uropathy. BUN/creatinine are improving with catheter drainage. Recommend beginning Flomax 0.4 mg daily. Maintain a Malcolm catheter. Patient will likely require discharge with catheter in place. Patient can be scheduled for a voiding trial as an outpatient in the office. VS, I&O, 24H, Fishbone Vital Signs/I&O Vital Signs Date Time Temp Pulse Resp B/P (MAP) Pulse Ox O2 Delivery O2 Flow Rate FiO2 06/20/19 08:00 97.2 100 18 97/51 (66) 100 06/18/19 22:46 Room Air I&O- Last 24 Hours up to 6 AM 06/20/19 05:59 Intake Total 3980 ml Output Total 4675 ml Balance -695 ml Laboratory Data 24H LABS Laboratory Tests 2 06/19/19 18:29: Blood Urea Nitrogen 131H, Creatinine 6.54H, Sodium Level 148H, Potassium Level 5.4H, Chloride Level 121H, Carbon Dioxide Level 17L, Anion Gap 10, Glomerular Filtration Rate 8.6L, Calcium Level 8.0L, Phosphorus Level 5.1#H, Albumin 2.6L 06/20/19 05:26: Blood Urea Nitrogen 91H, Creatinine 3.73H, Sodium Level 148H, Potassium Level 4.8, Chloride Level 122H, Carbon Dioxide Level 18L, Anion Gap 8, Glomerular Filtration Rate 16.4L, Calcium Level 7.6L, Phosphorus Level 3.7#, Albumin 2.4L, Nucleated Red Blood Cells % (auto) 0.0 CBC/BMP Laboratory Tests 06/19/19 18:29 Anion Gap 10 06/20/19 05:26 Anion Gap 8, Red Blood Count 3.49 L, Mean Corpuscular Volume 94.8, Mean Corpuscular Hemoglobin 30.9, Mean Corpuscular Hemoglobin Concent 32.6, Red Cell Distribution Width 13.6 Microbiology Microbiology 06/18/19 Urine Culture - Final, Complete Lele Daly MD Jun 20, 2019 09:42
[2019-06-20 10:50] LABS: MAGNESIUM LEVEL 2.7 MG/DL (1.8-2.4)
--- NOTE | 2019-06-20 11:21 | IPNPDOC ---
Text Note Date of Service The patient was seen on 06/20/19. NOTE Subjective: Patient seen and examined at bedside. No acute overnight events reported. No new medical complaints. States he is feeling better. Objective: General: NAD, sitting comfortably in chair, elderly HEENT: NC/AT, EOMI Lungs: CTA B/L Heart: +S1S2, RRR Abd: soft, NT, +BS ASSESSMENT/PLAN: 89-year-old male with a past medical history of chronic hypertension, chronic osteoarthritis with unsteady gait, and hearing loss admitted for management of acute renal failure secondary to rhabdomyolysis after having a mechanical fall. #MURIEL - improving - claire catheter placed - US shows right hydro, and other abnormalities - IV fluids - baseline creatinine unknown - appreciate nephro, urology c/s #hepatitis A - +IgM antibodies - supportive care #Rhabdomyolysis - continue with IVF - follow up labs #Left parietal occipital hematoma 2/2 Mechanical Fall - telemetry monitoring - fall precautions/ PT #AMS with baseline dementia - resolving - likely secondary to metabolic encephalopathy - neuro checks - family reported speech change - CT head on admission no acute path, repeat CT no interim change # Hyperkalemia - resolved #Lactic acidosis - resolved # Possible UTI / Urinary Incontinence Has leukocytosis UA + for WBCs and Leuk esterase - levaquin, follow UCx #HTN - c/w home meds DVT Px w Heparin VS,Fishbone, I+O VS, Fishbone, I+O Laboratory Tests 06/19/19 18:29 Anion Gap 10 06/20/19 05:26 Anion Gap 8, Red Blood Count 3.49 L, Mean Corpuscular Volume 94.8, Mean Corpuscular Hemoglobin 30.9, Mean Corpuscular Hemoglobin Concent 32.6, Red Cell Distribution Width 13.6 Vital Signs Date Time Temp Pulse Resp B/P (MAP) Pulse Ox O2 Delivery O2 Flow Rate FiO2 06/20/19 08:00 97.2 100 18 97/51 (66) 100 06/18/19 22:46 Room Air I&O- Last 24 Hours up to 6 AM 06/20/19 06:00 Intake Total 4140 ml Output Total 4675 ml Balance -535 ml ZBIGNIEW VARELA MD Jun 20, 2019 11:21
[2019-06-20 12:00] VITALS: BP 117/78
[2019-06-20 12:29] LABS: HEPATITIS B SURFACE ANTIGEN NEGATIVE (NEGATIVE)
[2019-06-20 12:56] LABS: HEPATITIS C VIRUS ABY INDEX 0.1 INDEX (<0.8)
[2019-06-20 12:57] LABS: HEPATITIS B CORE ANTIBODY IGM NEGATIVE (NEGATIVE)
[2019-06-20 13:06] LABS: HEPATITIS A ANTIBODY IGM POSITIVE (NEGATIVE)
[2019-06-20 16:00] VITALS: BP 110/62
[2019-06-20 20:00] VITALS: BP 122/56
[2019-06-20] MEDS: TAMSULOSIN 0.4 MG CAP PO SCH (22:05)
[2019-06-20] MEDS: LevoFLOXacin IV 250 MG in APPROPRIATE DILUENT 1 EA IV SCH (22:05)
[2019-06-20 23:59] VITALS: BP 119/58
[2019-06-21] MEDS: SODIUM BICARBONATE 50 MEQ in D5W 1,000 ML IV SCH ×2 (03:28→12:01)
[2019-06-21 04:00] VITALS: BP 108/50
[2019-06-21 05:54] LABS: HEMATOCRIT 30.2 % (42.0-52.0); HEMOGLOBIN 10.1 g/dl (13.5-17.5); MEAN CORPUSCULAR HEMOGLOBIN 31.1 pg (27.0-33.0); MEAN CORPUSCULAR HGB CONC 33.4 g/dl (32.0-36.5); MEAN CORPUSCULAR VOLUME 92.9 fl (80.0-96.0); PLATELET COUNT, AUTOMATED 156 10^3/uL (150-450); RED BLOOD COUNT 3.25 10^6/uL (4.30-6.10); WHITE BLOOD COUNT 7.5 10^3/uL (4.0-10.0)
[2019-06-21 06:33] LABS: ALBUMIN 2.3 GM/DL (3.2-5.2); BILIRUBIN,DIRECT 0.1 MG/DL (0.0-0.2); BILIRUBIN,TOTAL 0.3 MG/DL (0.2-1.0); CALCIUM LEVEL 7.6 MG/DL (8.8-10.2); CREATININE FOR GFR 1.8 MG/DL (0.70-1.30); GLOMERULAR FILTRATION RATE 38.1 (>35); POTASSIUM SERUM 4.5 MEQ/L (3.5-5.1); TOTAL PROTEIN 5.6 GM/DL (6.4-8.2)
[2019-06-21] MEDS ORDERED: PILL CUTTER 1 EACH XX PRN (07:15)
[2019-06-21 08:00] VITALS: BP 133/62
--- NOTE | 2019-06-21 08:18 | IPNPDOC ---
Date Seen The patient was seen on 06/21/19. Progress Note SUBJECTIVE: Patient comfortable OBJECTIVE PHYSICAL EXAMINATION: urine clear creatinine 1.8 LABORATORY DATA, IMAGING STUDIES, MICROBIOLOGY: Please see below. ASSESSMENT AND PLAN: Urinary retention with obstructive uropathy Patient is urologically stable for discharge with claire catheter. Please schedule follow up in office for voiding trial. VS, I&O, 24H, Fishbone Vital Signs/I&O Vital Signs Date Time Temp Pulse Resp B/P (MAP) Pulse Ox O2 Delivery O2 Flow Rate FiO2 06/21/19 04:00 97.1 88 20 108/50 (69) 99 06/18/19 22:46 Room Air I&O- Last 24 Hours up to 6 AM 06/21/19 05:59 Intake Total 4260 ml Output Total 2900 ml Balance 1360 ml Laboratory Data 24H LABS Laboratory Tests 2 06/21/19 05:25: Nucleated Red Blood Cells % (auto) 0.0, Anion Gap 3L, Glomerular Filtration Rate 38.1, Calcium Level 7.6L, Aspartate Amino Transf (AST/SGOT) 57H, Alanine Aminotransferase (ALT/SGPT) 49, Alkaline Phosphatase 56, Total Bilirubin 0.3, Direct Bilirubin 0.1, Total Creatine Kinase 1145H, Total Protein 5.6L, Albumin 2.3L, Albumin/Globulin Ratio 0.70L CBC/BMP Laboratory Tests 06/21/19 05:25 Red Blood Count 3.25 L, Mean Corpuscular Volume 92.9, Mean Corpuscular Hemoglobin 31.1, Mean Corpuscular Hemoglobin Concent 33.4, Red Cell Distribution Width 13.0 Microbiology Microbiology 06/18/19 Urine Culture - Final, Complete Lele Daly MD Jun 21, 2019 08:18
--- NOTE | 2019-06-21 09:43 | IPNPDOC ---
Text Note Date of Service The patient was seen on 06/21/19. NOTE Subjective: Patient seen and examined at bedside. No acute overnight events reported. No new medical complaints. States he is feeling better, and he misses his vegetable garden. Extensive discussion with family (son and daughter) at bedside yesterday evening. Objective: General: NAD, lying comfortably in bed, elderly HEENT: NC/AT, EOMI Lungs: CTA B/L Heart: +S1S2, RRR Abd: soft, NT, +BS ASSESSMENT/PLAN: 89-year-old male with a past medical history of chronic hypertension, chronic osteoarthritis with unsteady gait, and hearing loss admitted for management of acute renal failure secondary to rhabdomyolysis after having a mechanical fall. #MURIEL - continues to improve - claire catheter placed - US shows right hydro, and other abnormalities - IV fluids - baseline creatinine unknown - appreciate nephro, urology c/s #hepatitis A - +IgM antibodies - supportive care #Rhabdomyolysis - improving - continue with IVF - follow up labs #Left parietal occipital hematoma 2/2 Mechanical Fall - telemetry monitoring - fall precautions/ PT #AMS with baseline dementia - resolving - likely secondary to metabolic encephalopathy - neuro checks - family reported speech change - CT head on admission no acute path, repeat CT no interim change # Hyperkalemia - resolved #Lactic acidosis - resolved # Possible UTI / Urinary Incontinence Has leukocytosis UA + for WBCs and Leuk esterase - levaquin day #3, UCx no growth #Rosacea - continue doxy 50 BID, fluticasone topical BID to affected areas #HTN - c/w home meds DVT Px w Heparin VS,Fishbone, I+O VS, Fishbone, I+O Laboratory Tests 06/21/19 05:25 Red Blood Count 3.25 L, Mean Corpuscular Volume 92.9, Mean Corpuscular Hemoglobin 31.1, Mean Corpuscular Hemoglobin Concent 33.4, Red Cell Distribution Width 13.0 Vital Signs Date Time Temp Pulse Resp B/P (MAP) Pulse Ox O2 Delivery O2 Flow Rate FiO2 06/21/19 08:00 97.4 86 18 133/62 (85) 99 06/18/19 22:46 Room Air I&O- Last 24 Hours up to 6 AM 06/21/19 06:00 Intake Total 4060 ml Output Total 3300 ml Balance 760 ml ZBIGNIEW VARELA MD Jun 21, 2019 09:43
[2019-06-21] MEDS: FINASTERIDE 5 MG TAB PO SCH (09:51)
[2019-06-21] MEDS: DOXYCYCLINE HYCLATE 100 MG TAB PO SCH ×2 (09:51→20:37)
[2019-06-21 12:00] VITALS: BP 117/56
[2019-06-21 12:53] LABS: PERCENT SATURATION 47.2 % (19.7-50.0)
--- NOTE | 2019-06-21 13:46 | IPN ---
DATE OF SERVICE: 06/20/2019 SUBJECTIVE: Patient was seen and examined at the bedside today morning. His daughter was also present at the bedside when I saw him. Patient is much more awake and alert. He got the Malcolm catheter placed and his renal function is improving. Creatinine, sodium, and potassium are getting better. He continues to be on intravenous (IV) fluid hydration. Patient reports that he is feeling thirsty and he is asking to drink more water. More water was placed at the bedside. Creatinine phosphokinase (CPK) levels are improving. OBJECTIVE: Vital signs: Temperature is 98.1 degrees Fahrenheit, blood pressure 122/56, pulse is 95, respiratory rate of 18, saturating 99% on room air. Intake and output: Urine output recorded is 3.9 liters yesterday, 1.8 liters so far today since overnight. Weight in the bed scale is 80 kg. PHYSICAL EXAM: General: Patient is awake, alert, oriented times two, sitting up in the sofa, in no apparent distress. Head and neck exam: Extraocular muscles intact. Pupils equally round and reactive to light. Mucous membranes are moist. Neck is supple. There is no jugular venous distention (JVD). Cardiovascular: S1, S2, regular rate. No edema of the bilateral lower extremities. Respiratory: Chest is clear to auscultation bilaterally. Bilateral equal air entry. No rales or rhonchi. Abdomen is soft. Positive bowel sounds. Nontender. No organomegaly. Genitourinary: Patient has an indwelling Malcolm catheter. There is some white colored debris found in the urine tubing. Musculoskeletal: No clubbing or cyanosis. Pulses are 2+. 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 Power is 5/5 in bilateral upper extremities. LAB REVIEW: CBC showed WBC of 7.6, hemoglobin 10.4, platelets of 159. BMP showed sodium 148, potassium 4.8, chloride 122, bicarbonate is 18, BUN 91, creatinine is 3.7, glucose 123, calcium 7.6, phosphorus 3.7, magnesium 2.7. CPK is 1941. Albumin is 2.4. MICROBIOLOGY: Urine culture is negative so far. CURRENT INPATIENT MEDICATIONS: Patient's medications were all reviewed by me. She continues to be on D5W with 50 mEq of bicarb at 125 mL/h. He continues to be on Levaquin. Simvastatin was stopped yesterday. He was started on finasteride and Flomax yesterday. ASSESSMENT AND PLAN: 1. Acute renal failure. It was secondary to obstructive uropathy. He got a Malcolm catheter placed. He has a very good urine output. Renal function is improving. Continue IV fluid hydration. 2. Hypernatremia. It is secondary to free water deficit and decrease water intake. I asked the nursing staff to put a large pitcher of water at the bedside and asked the patient to freely drink water. He is also getting hypotonic fluids. Sodium level is expected to improve slowly. 3. Hyperkalemia. It was secondary to acute renal failure and metabolic acidosis. Potassium level has improved within the normal range with improvement in the renal function. 4. Non anion gap metabolic acidosis. Patient is getting IV bicarb. His renal function is also slowly improving. IV bicarb will be stopped once the serum bicarb level improves within the normal range. 5. Mild rhabdomyolysis. CPK level is improving. Continue gentle IV fluid hydration. 6. Hyperphosphatemia. Phosphorus level has improved within the normal range with improvement in the renal function. 7. BPH and urinary retention. Continue the Malcolm catheter. Continue Flomax and finasteride. 8. Metabolic encephalopathy. It was secondary to multiple electrolyte abnormalities and acute renal failure. Patient's mental status is improving with improvement in the electrolytes and renal function. DISPOSITION: Patient's daughter reports that she takes care of the patient at home but now she is getting overwhelmed and she wants the patient to be transferred to a fdc. Social work is working on that. SANDRA
[2019-06-21 16:00] VITALS: BP 120/58
[2019-06-21] MEDS ORDERED: SLF 3 ML SYR IV PRN (17:00)
[2019-06-21 20:00] VITALS: BP 126/58
[2019-06-21] MEDS: TAMSULOSIN 0.4 MG CAP PO SCH (20:37)
[2019-06-21] MEDS: SLF 3 ML SYR IV SCH (20:37)
[2019-06-21] MEDS ORDERED: CALCIUM CARBONATE 500 MG CHEW U/D PO ONE (22:45)
[2019-06-21 23:59] VITALS: BP 151/67
[2019-06-22 04:00] VITALS: BP 129/58
[2019-06-22] MEDS: SLF 3 ML SYR IV SCH ×3 (04:16→21:50)
[2019-06-22 05:34] LABS: HEMATOCRIT 34.7 % (42.0-52.0); HEMOGLOBIN 11.4 g/dl (13.5-17.5); MEAN CORPUSCULAR HEMOGLOBIN 30.9 pg (27.0-33.0); MEAN CORPUSCULAR HGB CONC 32.9 g/dl (32.0-36.5); PLATELET COUNT, AUTOMATED 159 10^3/uL (150-450); RED BLOOD COUNT 3.69 10^6/uL (4.30-6.10); WHITE BLOOD COUNT 7.9 10^3/uL (4.0-10.0)
[2019-06-22 05:54] LABS: CREATININE FOR GFR 1.32 MG/DL (0.70-1.30); GLOMERULAR FILTRATION RATE 54.5 (>35); POTASSIUM SERUM 4.5 MEQ/L (3.5-5.1)
[2019-06-22] MEDS: FINASTERIDE 5 MG TAB PO SCH (07:59)
[2019-06-22] MEDS: DOXYCYCLINE HYCLATE 100 MG TAB PO SCH ×2 (07:59→21:49)
[2019-06-22 08:00] VITALS: BP 132/62
--- NOTE | 2019-06-22 08:39 | IPNPDOC ---
Text Note Date of Service The patient was seen on 06/22/19. NOTE Subjective: Patient seen and examined at bedside. No acute overnight events reported. No new medical complaints. Continues to feel better. Objective: General: NAD, lying comfortably in bed, elderly HEENT: NC/AT, EOMI Lungs: CTA B/L Heart: +S1S2, RRR Abd: soft, NT, +BS ASSESSMENT/PLAN: 89-year-old male with a past medical history of chronic hypertension, chronic osteoarthritis with unsteady gait, and hearing loss admitted for management of acute renal failure secondary to rhabdomyolysis after having a mechanical fall. #MURIEL - continues to improve - claire catheter placed - renal US shows right hydro, and other abnormalities - IV fluids discontinued - baseline creatinine unknown - appreciate nephro, urology c/s #hepatitis A - +IgM antibodies - supportive care #Rhabdomyolysis - improving - continue with IVF - follow up labs #Left parietal occipital hematoma 2/2 Mechanical Fall - telemetry monitoring - fall precautions/ PT #AMS with baseline dementia - resolving - likely secondary to metabolic encephalopathy - neuro checks - family reported speech change - CT head on admission no acute path, repeat CT no interim change # Hyperkalemia - resolved #Lactic acidosis - resolved # Possible UTI / Urinary Incontinence Has leukocytosis UA + for WBCs and Leuk esterase - levaquin day #3, UCx no growth #Rosacea - continue doxy 50 BID, fluticasone topical BID to affected areas #HTN - c/w home meds DVT Px w Heparin Dispo: transfer to floor, pending placement for rehab VS,Fishbone, I+O VS, Fishbone, I+O Laboratory Tests 06/22/19 05:08 Red Blood Count 3.69 L, Mean Corpuscular Volume 94.0, Mean Corpuscular Hem oglobin 30.9, Mean Corpuscular Hemoglobin Concent 32.9, Red Cell Distribution Width 12.7, Calcium Level 8.0 L Vital Signs Date Time Temp Pulse Resp B/P (MAP) Pulse Ox O2 Delivery O2 Flow Rate FiO2 06/22/19 08:00 97.3 88 18 132/62 (85) 99 06/18/19 22:46 Room Air I&O- Last 24 Hours up to 6 AM 06/22/19 05:59 Intake Total 2565 ml Output Total 4050 ml Balance -1485 ml LALDIN,ZBIGNIEW S. MD Jun 22, 2019 08:39
--- NOTE | 2019-06-22 10:12 | IPN ---
DATE OF VISIT: 06/21/2019 Mr. Richardson is seen this morning on his bedside. His daughter is present on the bedside. Patient has been admitted with acute renal failure and generalized weakness. His kidney function is improving as he had obstructive uropathy and after Malcolm catheter placement he had good urine output. He also had hypernatremia and metabolic acidosis, for which he is currently receiving sodium bicarbonate in IV fluid. Patient has improved oral intake and he is drinking his coffee right now. Nursing staff reports that he did eat about 50% of his breakfast and his oral intake has improved. There is no vomiting or diarrhea reported. On physical exam, temperature 97.4 degrees Fahrenheit, heart rate 86 per minute and respiratory rate 18 per minute. Blood pressure 133/62 mmHg and oxygen saturation 99% on room air. His head is atraumatic. Neck is supple and without jugular venous distention (JVD) or thyroid enlargement. Heart sounds are regular and lungs with diminished breath sounds. Abdomen is soft and nontender and bowel sounds are normal. Extremities without any cyanosis or clubbing. Neurologically, he is awake and able to answer simple questions. Today's labs show sodium level 144, potassium 4.5, chloride 114, CO2 27, BUN 46, and creatinine 1.80. Glucose 111 and calcium 7.6. CPK is down to 1145. Total protein 5.6 and albumin 2.3. PROBLEMS: 1. Acute renal failure related to obstructive uropathy and dehydration. Patient had poor oral intake for a few days. Now his intake is improving and with Malcolm catheter placement his kidney function is also improving. His oral intake is much better now and we will stop his IV fluid today. 2. Hypernatremia. Sodium level has also corrected. His oral intake is much better now and I am going to stop the IV fluid. Electrolytes will be monitored. 4. Metabolic acidosis. Acidosis has corrected as his kidney function has improved. There is no need for further bicarbonate infusion and it will be stopped. 5. Rhabdomyolysis. His creatinine phosphokinase (CPK) level has improved down to 1145. Kidney function has also improved and I do not feel that rhabdomyolysis was affecting his kidney function at all. 6. Anemia. His anemia is related to hemodilution as he was very dehydrated on admission. No urgent intervention is indicated and we will continue to monitor. He should be treated with multivitamin and iron supplement. I will add iron studies to his lab work. 7. Urinary retention. This elderly gentleman we should keep the Malcolm catheter in for now. He has already been started on tamsulosin and finasteride. We will wait for a few days before considering to remove his Malcolm catheter.
[2019-06-22 12:00] VITALS: BP 126/58
[2019-06-22 14:00] VITALS: BP 124/58
[2019-06-22] MEDS: LevoFLOXacin IV 250 MG in APPROPRIATE DILUENT 1 EA IV SCH (21:49)
[2019-06-22] MEDS: TAMSULOSIN 0.4 MG CAP PO SCH (21:49)
[2019-06-22 22:00] VITALS: BP 138/63
[2019-06-23] MEDS: SLF 3 ML SYR IV SCH ×3 (05:10→20:37)
[2019-06-23 06:00] VITALS: BP 112/53
[2019-06-23 06:16] LABS: HEMATOCRIT 33.6 % (42.0-52.0); HEMOGLOBIN 11.1 g/dl (13.5-17.5); MEAN CORPUSCULAR HEMOGLOBIN 31.1 pg (27.0-33.0); MEAN CORPUSCULAR VOLUME 94.1 fl (80.0-96.0); PLATELET COUNT, AUTOMATED 186 10^3/uL (150-450); RED BLOOD COUNT 3.57 10^6/uL (4.30-6.10); WHITE BLOOD COUNT 10.2 10^3/uL (4.0-10.0)
[2019-06-23 06:41] LABS: CALCIUM LEVEL 7.9 MG/DL (8.8-10.2); CREATININE FOR GFR 1.22 MG/DL (0.70-1.30); GLOMERULAR FILTRATION RATE 59.7 (>35); POTASSIUM SERUM 4.5 MEQ/L (3.5-5.1)
[2019-06-23] MEDS: DOXYCYCLINE HYCLATE 100 MG TAB PO SCH ×2 (08:18→20:37)
[2019-06-23] MEDS: FINASTERIDE 5 MG TAB PO SCH (08:18)
--- NOTE | 2019-06-23 08:47 | IPNPDOC ---
Text Note Date of Service The patient was seen on 06/23/19. NOTE Subjective: Patient seen and examined at bedside. No acute overnight events reported. No new medical complaints. Objective: General: NAD, lying comfortably in bed, elderly HEENT: NC/AT, EOMI Lungs: CTA B/L Heart: +S1S2, RRR Abd: soft, NT, +BS ASSESSMENT/PLAN: 89-year-old male with a past medical history of chronic hypertension, chronic osteoarthritis with unsteady gait, and hearing loss admitted for management of acute renal failure secondary to rhabdomyolysis after having a mechanical fall. #MURIEL - resolved s/p IV fluids - claire catheter placed - renal US showed right hydro, and other abnormalities - baseline creatinine unknown - appreciate nephro, urology c/s - outpatient TOV with urology #hepatitis A - +IgM antibodies - supportive care #Rhabdomyolysis - resolved #Left parietal occipital hematoma 2/2 Mechanical Fall - telemetry monitoring - fall precautions/ PT #AMS with baseline dementia - resolving - likely secondary to metabolic encephalopathy - neuro checks - family reported speech change - CT head on admission no acute path, repeat CT no interim change # Hyperkalemia - resolved #Lactic acidosis - resolved # Possible UTI / Urinary Incontinence Has leukocytosis UA + for WBCs and Leuk esterase - levaquin day #4/5, UCx no growth #Rosacea - continue home regimen - doxy 50 BID, fluticasone topical BID to affected areas #HTN - c/w home meds DVT Px w Heparin Dispo: pending placement for rehab VS,Fishbone, I+O VS, Fishbone, I+O Laboratory Tests 06/23/19 05:22 Red Blood Count 3.57 L, Mean Corpuscular Volume 94.1, Mean Corpuscular Hemoglobin 31.1, Mean Corpuscular Hemoglobin Concent 33.0, Red Cell Distribution Width 12.7, Calcium Level 7.9 L Vital Signs Date Time Temp Pulse Resp B/P (MAP) Pulse Ox O2 Delivery O2 Flow Rate FiO2 06/23/19 06:00 98.0 89 20 112/53 (72) 99 06/18/19 22:46 Room Air I&O- Last 24 Hours up to 6 AM 06/23/19 06:00 Intake Total 2130 ml Output Total 2325 ml Balance -195 ml ZBIGNIEW VARELA MD Jun 23, 2019 08:47
[2019-06-23] MEDS ORDERED: CALCIUM CARBONATE 500 MG CHEW U/D PO PRN (10:45)
[2019-06-23 14:00] VITALS: BP 126/57
--- NOTE | 2019-06-23 20:29 | IPN ---
DATE: 06/22/2019 Mr. Richardson is seen this morning on his bedside. He is feeling much better now and denies any nausea, vomiting, dyspnea or chest pain. His oral intake has improved and intravenous (IV) fluid was stopped yesterday. The patient has good urine output and remains with Malcolm catheter. He had obstructive uropathy with advanced renal failure on admission, which has improved significantly since then. The patient also had hypernatremia and metabolic acidosis and those are both corrected and resolved. PHYSICAL EXAMINATION: Temperature 97.3 degrees Fahrenheit, heart rate 88 per minute, and respiratory rate 18 per minute. Blood pressure 132/62 mmHg and oxygen saturation 99% on room air. His head is atraumatic. Neck is supple and without jugular venous distention (JVD) or thyroid enlargement. Heart sounds are regular and lungs with slightly diminished breath sounds and poor inspiratory effort. Abdomen: Soft and nontender and bowel sounds are normal. Extremities have no cyanosis or clubbing. Neurologically he is at his baseline mentation. Today's labs show WBC count 7.9, hemoglobin 11.4 and hematocrit 34.7. Platelets 159. Sodium 145, potassium 4.5, CO2 of 24, BUN 26 and creatinine 1.32. Glucose 102 and calcium 8.0. PROBLEM #1: Acute renal failure. Kidney function is improving nicely, and the patient mostly had obstructive uropathy. At this point, renal function is likely to return all the way down to baseline. His oral intake is now adequate and IV fluid has already been stopped. PROBLEM #2: Urinary retention. This elderly gentleman has a Malcolm catheter in place. He is currently on Proscar and Flomax, which should be continued for a few more days. Once he is stronger and out of bed, then a trial of void can be given with removal of Malcolm catheter and monitoring of his urinary retention with bladder scans. PROBLEM #3: Metabolic acidosis. Completely corrected and resolved. No need for sodium bicarbonate anymore. IV fluid with sodium bicarbonate has already been stopped. PROBLEM #4: Hypernatremia. Sodium level has also corrected and improved and stable at present. The patient is being encouraged for increased oral intake. He is at risk for dehydration and hypernatremia again if he does not drink adequate amount of fluids. At present, we will keep him off IV fluids and monitor his electrolytes for another couple of days.
[2019-06-23] MEDS: TAMSULOSIN 0.4 MG CAP PO SCH (20:36)
[2019-06-23 22:00] VITALS: BP_SYST 124; BP_SYST 126; BP_DIAS 58; BP_DIAS 59
--- NOTE | 2019-06-23 22:58 | IPN ---
DATE: 06/23/2019 Mr. Richardson was seen for acute renal failure. He was felt to have obstructive uropathy and had a Malcolm catheter placed. His kidney function has improved nicely. He also had developed hypernatremia and metabolic acidosis, which has both improved significantly and corrected now. His IV fluids have been stopped, and the patient has adequate oral intake. Today his BUN is down to 20 and creatinine is 1.22 while his electrolytes are within normal range. I do not feel that further nephrology service is needed at this point. I am signing off from his case. Please do not hesitate to call me back should you need any further assistance.
[2019-06-24] MEDS: SLF 3 ML SYR IV SCH ×3 (05:38→22:58)
[2019-06-24] MEDS: LevoFLOXacin 250 MG TABLET PO SCH (05:38)
[2019-06-24 06:00] VITALS: BP 119/59
[2019-06-24 06:05] LABS: HEMATOCRIT 34.2 % (42.0-52.0); HEMOGLOBIN 11.5 g/dl (13.5-17.5); MEAN CORPUSCULAR HEMOGLOBIN 31.5 pg (27.0-33.0); MEAN CORPUSCULAR HGB CONC 33.6 g/dl (32.0-36.5); MEAN CORPUSCULAR VOLUME 93.7 fl (80.0-96.0); PLATELET COUNT, AUTOMATED 200 10^3/uL (150-450); RED BLOOD COUNT 3.65 10^6/uL (4.30-6.10); WHITE BLOOD COUNT 9.9 10^3/uL (4.0-10.0)
[2019-06-24 06:24] LABS: BLOOD UREA NITROGEN 20 MG/DL (7-18); CALCIUM LEVEL 7.8 MG/DL (8.8-10.2); CARBON DIOXIDE LEVEL 23 MEQ/L (21-32); CHLORIDE LEVEL 113 MEQ/L (98-107); GLOMERULAR FILTRATION RATE > 60.0 (>35); GLUCOSE, FASTING 89 MG/DL (70-100); POTASSIUM SERUM 4.3 MEQ/L (3.5-5.1); SODIUM LEVEL 141 MEQ/L (136-145)
[2019-06-24 07:21] VITALS: BP 119/59
--- NOTE | 2019-06-24 08:33 | REP ---
CT brain without contrast: History: Brief altered mental status. Verbally unresponsive. CT stroke protocol. Comparison CT study June 19, 2019. CT findings: Digital preliminary lube technician radiograph is unremarkable. The patient is edentulous. The bony calvarium is intact. On soft-tissue window settings, there is advanced diffuse generalized atrophy. There is no evidence of intracranial hemorrhage. No acute infarction is seen. No mass or midline shift is observed. Vascular calcification is noted in the distal carotid arteries. No intraorbital abnormality is seen. Impression: Vascular calcification, advanced diffuse atrophy. No acute intracranial abnormality. Electronically Signed by Lake Hand MD 06/24/2019 08:32 A
[2019-06-24 10:06] LABS: ALBUMIN 2.6 GM/DL (3.2-5.2); ALT/SGPT 48 U/L (12-78); BILIRUBIN,DIRECT < 0.1 MG/DL (0.0-0.2); BILIRUBIN,TOTAL 0.4 MG/DL (0.2-1.0); CALCIUM LEVEL 8.1 MG/DL (8.8-10.2); TOTAL PROTEIN 5.9 GM/DL (6.4-8.2)
[2019-06-24] MEDS: DOXYCYCLINE HYCLATE 100 MG TAB PO SCH ×2 (10:26→20:29)
[2019-06-24] MEDS: FINASTERIDE 5 MG TAB PO SCH (10:26)
[2019-06-24 14:00] VITALS: BP 119/57
--- NOTE | 2019-06-24 17:17 | IPNPDOC ---
Subjective Date Seen The patient was seen on 06/24/19. Subjective Chief Complaint/HPI Pt was found verbally unresponsive by nurse. Upon my arrival pt was responsive, alert, oriented. He denies any reconciliation of previous event. He denies any other similar episodes in the past General: Reports: Fatigue, Normal Appetite; Denies: ROS Unobtainable, Chills, Night Sweats, Malaise, Other Symptoms Constitutional: Reports: Weakness, Fatigue; Denies: Chills, Fever, Malaise, Night Sweats, Weight Loss, Lethargy, Other Eyes: Denies: Pain, Vision change, Conjunctivae inflammation, Eyelid inflammation, Redness, Other ENT: Denies: Head Aches, Ear Pain, Dysphagia, Sinus Congestion, Post Nasal Drip, Sore Throat, Epistaxis, Other Symptoms Skin: Reports: Bruising; Denies: Rash, Lesions, Jaundice, Itching, Dry, Breakdown, Nail Changes, Other Pulmonary: Denies: Dyspnea, Cough, Pleuritic Chest Pain, Other Symptoms Cardiovascular: Denies: Chest Pain, Palpitations, Orthopnea, Paroxysmal Noc. Dyspnea, Edema, Lt Headedness, Other Symptoms Gastrointestinal: Denies: Nausea, Vomiting, Abdominal Pain, Diarrhea, Constipation, Melena, Hematochezia, Other Symptoms Genitourinary: Reports: Frequency; Denies: Dysuria, Incontinence, Hematuria, Retention, Other Symptoms Musculoskeletal: Denies: Neck Pain, Back Pain, Shoulder Pain, Arm Pain, Hand Pain, Leg Pain, Foot Pain, Joint Pain, Muscle Pain, Spasms, Other Symptoms Objective Physical Examination General Exam: Positive: Cooperative Eye Exam: Positive: PERRLA Neck Exam: Positive: Supple; Negative: JVD, thyromegaly, +2 carotid pulse wo bruit, Lymphadenopathy, Other Chest Exam: Positive: Clear to auscultation; Negative: Normal air movement, Rales, Rhonchi, Wheezing, Diminished, Other Heart Exam: Positive: Rate Normal; Negative: Tachycardic, Bradycardic, Regular Rhythm, Irregular Rhythm, Normal S1, Normal S2, Gallops, Murmurs, Rubs, Other Telemetry: Positive: No significant arrhythmia; Negative: Sinus, Atrial fibrillation, Tachycardia, Bradycardia, AV Block, Pause, SV Tach, PVCs, PACs, Asystole, Other Telemetry: Abdomen Exam: Negative: Normal bowel sounds, BS Hyperactive, BS Hypoactive, Soft, Tenderness, Hepatospenomegaly, Mass, Hernia, Other Neuro Exam: Positive: Normal Gait, Normal Speech, Strength at 5/5 X4 ext, Normal Tone, Sensation Intact, Cranial Nerves 3-12 NL, Reflexes 2+, Other Psych Exam: Positive: Mental status NL Assessment /Plan Assessment Pt is 89 yo male with PMH CKD, urinary retention presented to the hospital after mechanical fall, he was found to have rhabdomyolysis and MURIEL. Problems (1) MURIEL (acute kidney injury) Problem Text: continue to monitor CPK, BPM. Improved. Nephrology team follows him (2) Rhabdomyolysis Problem Text: Kidney function improved. Continue to monitor UA, urine output, CPK, encourage hydration PO (3) Renal failure Status: Resolved Response to Treatment: Improving Problem Text: 2/2 rhabdomyolysis and volume contraction. Continue to monitor. (4) Fall Status: Chronic Problem Text: Continue PT/OT. 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 Await SNF dispo (5) Altered mental state Status: Resolved Problem Text: 2/2 metabolic encephalopathy, seizure or TIA. AMS resolved after 5 min w/o any neuro deficits. CT head was done and it was negative for acute bleeding Doppler carotid U/s ordered Mag, Phos (6) Urinary retention Status: Acute Problem Text: continue Malcolm for now. Continue tamsulosin and finasteride Plan/VTE VTE Prophylaxis Ordered?: Yes Plan Diet: Continue Current Activity: Continue Current Therapy: PT, OT Anticipated Discharge: Alf Disposition Acute rehab vs SNF VS, I&O, 24H, Fishbone Vital Signs/I&O Vital Signs Date Time Temp Pulse Resp B/P (MAP) Pulse Ox O2 Delivery O2 Flow Rate FiO2 06/24/19 14:00 96.9 90 14 119/57 (77) 100 06/18/19 22:46 Room Air I&O- Last 24 Hours up to 6 AM 06/24/19 05:59 Intake Total 840 ml Output Total 2350 ml Balance -1510 ml Laboratory Data 24H LABS Laboratory Tests 2 06/24/19 05:21: Nucleated Red Blood Cells % (auto) 0.0, Anion Gap 5L, Glomerular Filtration Rate > 60.0, Blood Urea Nitrogen 20H, Creatinine 1.10, Sodium Level 141, Potassium Level 4.3, Chloride Level 113H, Carbon Dioxide Level 23, Calcium Level 7.8L 06/24/19 09:00: Calcium Level 8.1L, Aspartate Amino Transf (AST/SGOT) 36, Alanine Aminotransferase (ALT/SGPT) 48, Alkaline Phosphatase 64, Total Bilirubin 0.4, Direct Bilirubin < 0.1, Total Protein 5.9L, Albumin 2.6L, Albumin/Globulin Ratio 0.79L CBC/BMP Laboratory Tests 06/24/19 05:21 Red Blood Count 3.65 L, Mean Corpuscular Volume 93.7, Mean Corpuscular Hemoglobin 31.5, Mean Corpuscular Hemoglobin Concent 33.6, Red Cell Distribution Width 12.7, Calcium Level 7.8 L Microbiology Microbiology 06/18/19 Urine Culture - Final, Complete MILAN VAZ DO Jun 24, 2019 17:17
[2019-06-24] MEDS: TAMSULOSIN 0.4 MG CAP PO SCH (20:29)
--- NOTE | 2019-06-24 20:48 | ECGEPIP ---
[facility] Test Date: 2019-06-24 Pat Name: ZBIGNIEW MILES Department: Room: [place] [address] Gender: Male Product Representative: DARIN : 1930 Requested By: MILAN VAZ Order Number: [id number] Reading MD: Ricky Jeffries Measurements Intervals Elizabeth Rate: 84 P: 43 NC: 168 QRS: 16 QRSD: 101 T: 61 QT: 366 QTc: 433 Interpretive Statements SINUS RHYTHM LOW QRS VOLTAGE IN EXTREMITY LEADS PRIOR TRACING ON 06/18/2019 AT 6:28 P.M., HEART RATE IS NOW SLOWER OTHERWISE NO SIGNIFICANT CHANGES Electronically Signed on 06-24-2019 20:48:06 EDT by Ricky Jeffries
[2019-06-24 22:00] VITALS: BP 115/54
[2019-06-25 06:00] VITALS: BP 117/56
[2019-06-25 06:00] LABS: HEMATOCRIT 32.8 % (42.0-52.0); MEAN CORPUSCULAR HEMOGLOBIN 31.3 pg (27.0-33.0); MEAN CORPUSCULAR HGB CONC 33.5 g/dl (32.0-36.5); MEAN CORPUSCULAR VOLUME 93.4 fl (80.0-96.0); PLATELET COUNT, AUTOMATED 207 10^3/uL (150-450); RED BLOOD COUNT 3.51 10^6/uL (4.30-6.10)
[2019-06-25 06:30] LABS: ALBUMIN 2.4 GM/DL (3.2-5.2); ALT/SGPT 42 U/L (12-78); BILIRUBIN,TOTAL 0.3 MG/DL (0.2-1.0); BLOOD UREA NITROGEN 20 MG/DL (7-18); CALCIUM LEVEL 7.9 MG/DL (8.8-10.2); CARBON DIOXIDE LEVEL 22 MEQ/L (21-32); CHLORIDE LEVEL 113 MEQ/L (98-107); CREATININE FOR GFR 1.08 MG/DL (0.70-1.30); FERRITIN 862 NG/ML (26-388); GLOMERULAR FILTRATION RATE > 60.0 (>35); GLUCOSE, FASTING 95 MG/DL (70-100); IRON (FE) 42 UG/DL (65-175); MAGNESIUM LEVEL 1.7 MG/DL (1.8-2.4); PERCENT SATURATION 22.6 % (19.7-50.0); SODIUM LEVEL 142 MEQ/L (136-145); TOTAL IRON BINDING CAPACITY 186 UG/DL (250-450); TOTAL PROTEIN 5.6 GM/DL (6.4-8.2)
[2019-06-25] MEDS: SLF 3 ML SYR IV SCH ×3 (07:34→21:40)
--- NOTE | 2019-06-25 08:10 | REPVR ---
EXAM: US Duplex Bilateral Extracranial Arteries EXAM DATE/TIME: 06/24/2019 7:58 PM CLINICAL HISTORY: 89 years old, male; Other: TIA TECHNIQUE: Imaging protocol: Real-time Duplex ultrasound scan of the Bilateral carotid and vertebral arteries combining wells scale, color Doppler and spectral waveform analysis. COMPARISON: CT Head without contrast 06/18/2019 5:51 PM FINDINGS: Right common carotid artery: Mild intimal thickening seen in the proximal right CCA with peak systolic velocity of 102.8 cm/s. The right mid CCA is widely patent with peak systolic velocity of 1 15 cm/s. Small minimally echogenic plaque seen in the posterior wall of the distal right CCA with peak systolic velocity of 127.4 cm/s Right internal carotid artery: The right carotid bulb is patent with peak systolic velocity of 84 cm/s. Calcified plaque seen in the posterior wall of the right proximal ICA with peak systolic velocity of 30 cm/s. Right ICA/CCA ratio: Within normal limits. Right external carotid artery: No stenosis in the origin. Right vertebral artery: Antegrade flow seen in the right vertebral artery with peak systolic velocity of 26.3 cm/s. Left common carotid artery: Intimal thickening seen in the proximal left CCA with peak systolic velocity of 90.5 cm/s. Minimally calcified plaque seen in the mid left CCA with peak systolic velocity of 77.1 cm/s. Mildly calcified plaques seen in the distal left CCA with peak systolic velocity of 90.9 cm/s. Left internal carotid artery: The left carotid bulb is patent with peak systolic velocity of 59.5 cm/s. The proximal left ICA is patent with mild mural calcification in the systolic velocity of 45.5 cm/s. Left ICA/CCA ratio: Within normal limits. Left external carotid artery: The proximal ECA is patent with peak systolic velocity of 35.3 cm/s. Peak systolic velocity of 67.4 cm/s seen in the left ECA. Left vertebral artery: Antegrade flow seen in the left vertebral artery with peak systolic velocity of 33.4 cm/s. IMPRESSION: No sonographic evidence of hemodynamically significant stenosis in the right and left CCA or proximal right and left ICAs. Mid to distal ICAs with no visualized or evaluated on this exam. COMMENT: Carotid Stenosis Reference using SRU criteria: Mild: less than 50% stenosis. ICA PSV is less than 125 cm/second and plaque or intimal thickening is visible. Moderate: 50-69% stenosis. ICA PSV is 125 to 230 cm/second and plaque is visible. Severe: 70-94% stenosis. ICA PSV is more than 230 cm/second and visible plaque and lumen narrowing are seen. Near occlusion: 95-99% stenosis. ICA PSV is variable and significant plaque and luminal narrowing are seen. Occluded: 100% stenosis. No flow identified. Electronically signed by: Gideon Horton On 06/25/2019 08:10:19 AM
[2019-06-25] MEDS: FINASTERIDE 5 MG TAB PO SCH (09:45)
[2019-06-25] MEDS: DOXYCYCLINE HYCLATE 100 MG TAB PO SCH ×2 (09:45→21:40)
[2019-06-25] MEDS: MAGNESIUM CHLORIDE 64 MG TABCR (SLO MAG) PO SCH (10:27)
[2019-06-25 13:30] VITALS: BP_SYST 104; BP_SYST 105; BP_SYST 114; BP_DIAS 49; BP_DIAS 52; BP_DIAS 55
[2019-06-25 14:00] VITALS: BP 115/55
[2019-06-25] MEDS: FLUTICASONE 0.05% CREAM 30GM (CUTIVATE) TOP PRN (16:19)
--- NOTE | 2019-06-25 17:55 | IPNPDOC ---
Text Note Date of Service The patient was seen on 06/25/19. NOTE Subjective Not any acute events overnight. Patient denies any episodes of syncope, dizziness, nausea, vomiting, chest pain, palpitations, diarrhea Objective Physical Examination General Exam: Positive: Cooperative Eye Exam: PERRLA Neck Exam: Supple Chest Exam: Positive: Clear to auscultation Heart Exam: Positive: Rate Normal Telemetry: Positive: No significant arrhythmia; Negative: Sinus, Atrial fibrillation, Tachycardia, Bradycardia, AV Block, Pause, SV Tach, PVCs, PACs, Asystole, Other Telemetry: Abdomen Exam: Negative: Normal bowel sounds Neuro Exam: Cranial Nerves 3-12 NL, Reflexes 2+ Assessment/Plan Pt is 89 yo male with PMH CKD, urinary retention presented to the hospital after mechanical fall, he was found to have rhabdomyolysis and MURIEL. Problems (1) MURIEL (acute kidney injury) Resolved Nephrology team follows him (2) Rhabdomyolysis Kidney function improved. Continue to monitor UA, urine output, CPK, encourage hydration PO (3) Renal failure Resolved 2/2 rhabdomyolysis and volume contraction. Continue to monitor. (4) Fall Chronic Continue PT/OT. car worker on board. Await SNF dispo (5) Altered mental state Resolved 2/2 metabolic encephalopathy, seizure or TIA. CT head was done and it was negative for acute bleeding Doppler carotid U/s pending Mag, Phos (6) Urinary retention Continue tamsulosin and finasteride Continue Malcolm catheter per urologist recommendation VS,Fishbone, I+O VS, Fishbone, I+O Laboratory Tests 06/25/19 05:23 Red Blood Count 3.51 L, Mean Corpuscular Volume 93.4, Mean Corpuscular Hemoglobin 31.3, Mean Corpuscular Hemoglobin Concent 33.5, Red Cell Distribution Width 13.0, Calcium Level 7.9 L, Phosphorus Level 2.0 L, Aspartate Amino Transf (AST/SGOT) 26, Alanine Aminotransferase (ALT/SGPT) 42, Alkaline Phosphatase 60, Total Bilirubin 0.3, Total Protein 5.6 L, Albumin 2.4 L Vital Signs Date Time Temp Pulse Resp B/P (MAP) Pulse Ox O2 Delivery O2 Flow Rate FiO2 06/25/19 14:00 96.9 84 18 115/55 (51) 98 I&O- Last 24 Hours up to 6 AM 06/25/19 06:00 Intake Total 1820 ml Output Total 2475 ml Balance -655 ml MIALN VAZ DO Jun 25, 2019 17:55
[2019-06-25] MEDS: TAMSULOSIN 0.4 MG CAP PO SCH (21:40)
[2019-06-25 22:00] VITALS: BP 131/62
[2019-06-26 06:00] VITALS: BP 125/63
[2019-06-26] MEDS: LevoFLOXacin 250 MG TABLET PO SCH (06:36)
[2019-06-26] MEDS: SLF 3 ML SYR IV SCH ×3 (06:36→20:28)
[2019-06-26 07:59] LABS: BLOOD UREA NITROGEN 18 MG/DL (7-18); CALCIUM LEVEL 7.7 MG/DL (8.8-10.2); CARBON DIOXIDE LEVEL 23 MEQ/L (21-32); CHLORIDE LEVEL 111 MEQ/L (98-107); CREATININE FOR GFR 1.13 MG/DL (0.70-1.30); GLOMERULAR FILTRATION RATE > 60.0 (>35); GLUCOSE, FASTING 88 MG/DL (70-100); MAGNESIUM LEVEL 1.9 MG/DL (1.8-2.4); POTASSIUM SERUM 4.3 MEQ/L (3.5-5.1); SODIUM LEVEL 142 MEQ/L (136-145)
[2019-06-26 08:12] LABS: HEMATOCRIT 32.2 % (42.0-52.0); MEAN CORPUSCULAR HEMOGLOBIN 32.4 pg (27.0-33.0); MEAN CORPUSCULAR HGB CONC 34.2 g/dl (32.0-36.5); MEAN CORPUSCULAR VOLUME 94.7 fl (80.0-96.0); PLATELET COUNT, AUTOMATED 233 10^3/uL (150-450); WHITE BLOOD COUNT 11.7 10^3/uL (4.0-10.0)
[2019-06-26] MEDS: DOXYCYCLINE HYCLATE 100 MG TAB PO SCH (08:43)
[2019-06-26] MEDS: FINASTERIDE 5 MG TAB PO SCH (08:43)
--- NOTE | 2019-06-26 10:33 | IPNPDOC ---
Text Note Date of Service The patient was seen on 06/26/19. NOTE Not any acute events overnight. Patient is very concerned about hydrocele, stated that he would like to see urologist in the outpatient settings. Patient denies any episodes of syncope, dizziness, nausea, vomiting, chest pain, palpitations, diarrhea Objective Physical Examination General Exam: Positive: Cooperative Eye Exam: PERRLA Neck Exam: Supple, EOMI Chest Exam: Positive: Clear to auscultation Heart Exam: Positive: Rate Normal, S1-S2 Scrotum: large hydrocele bilaterally Abdomen Exam: Negative: Normal bowel sounds Neuro Exam: Cranial Nerves 3-12 NL, Reflexes 2+ Assessment/Plan Pt is 89 yo male with PMH CKD, urinary retention presented to the hospital after mechanical fall, he was found to have rhabdomyolysis and MURIEL. Problems (1) MURIEL (acute kidney injury) Resolved Nephrology team follows him (2) Rhabdomyolysis Kidney function improved. Continue to monitor UA, urine output, CPK, encourage hydration PO Continue IV hydration (3) Renal failure Resolved 2/2 rhabdomyolysis and volume contraction. Continue to monitor. Orthostatic vital signs ordered (4) Fall Chronic Continue PT/OT. suction worker on board. Await SNF dispo (5) Altered mental state Resolved 2/2 metabolic encephalopathy, seizure or TIA. CT head was done and it was negative for acute bleeding Doppler carotid U/s pending Mag, Phos (6) Urinary retention Continue tamsulosin and finasteride Continue Malcolm catheter per urologist recommendation Patient will need follow-up with urologist in the outpatient settings for voiding trial and possible surgical treatment of hydrocele #Anemia Stool for occult blood positive His hemoglobin is stable around 11. No signs or symptoms of acute bleeding. Patient stated that he never had colonoscopy Patient will need GI consult in the outpatient settings and possible colonoscopy MCV suggested normocytic anemia, iron level is low. We will check B12, folate level Replace iron #Hydrocele Bilateral, patient will need urology consult in the outpatient settings VS,Jeri, I+O VS, Jeri, I+O Laboratory Tests 06/26/19 05:38 Red Blood Count 3.40 L, Mean Corpuscular Volume 94.7, Mean Corpuscular Hemoglobin 32.4, Mean Corpuscular Hemoglobin Concent 34.2, Red Cell Distribution Width 13.2, Calcium Level 7.7 L Vital Signs Date Time Temp Pulse Resp B/P (MAP) Pulse Ox O2 Delivery O2 Flow Rate FiO2 06/26/19 06:00 97.7 85 18 125/63 (83) 99 I&O- Last 24 Hours up to 6 AM 06/26/19 06:00 Intake Total 1260 ml Output Total 1900 ml Balance -640 ml MILAN VAZ DO Jun 26, 2019 10:33
[2019-06-26 11:51] LABS: FOLATE 12.3 NG/ML (>5.4)
[2019-06-26] MEDS: IRON POLYSAC (NIFEREX) 150 MG CAP PO SCH ×2 (13:45→20:27)
[2019-06-26] MEDS: OMEPRAZOLE 20 MG CAP PO SCH (13:45)
[2019-06-26] MEDS: MAGNESIUM CHLORIDE 64 MG TABCR (SLO MAG) PO SCH (13:46)
[2019-06-26] MEDS: NS 1,000 ML IV SCH ×2 (13:52→20:27)
[2019-06-26 14:00] VITALS: BP 126/54
[2019-06-26 15:00] VITALS: BP_SYST 107; BP_SYST 113; BP_SYST 118; BP_DIAS 51; BP_DIAS 54; BP_DIAS 57
[2019-06-26] MEDS: TAMSULOSIN 0.4 MG CAP PO SCH (20:27)
[2019-06-26 20:57] VITALS: BP_SYST 108; BP_SYST 110; BP_SYST 138; BP_DIAS 55; BP_DIAS 57; BP_DIAS 66
[2019-06-26 22:00] VITALS: BP 142/65
[2019-06-27] MEDS: SLF 3 ML SYR IV SCH ×3 (05:09→20:52)
[2019-06-27] MEDS: NS 1,000 ML IV SCH ×2 (05:12→14:17)
[2019-06-27 05:32] VITALS: BP_SYST 105; BP_SYST 114; BP_SYST 127; BP_DIAS 55; BP_DIAS 63; BP_DIAS 81
[2019-06-27 06:00] VITALS: BP 103/55
[2019-06-27 06:36] LABS: HEMATOCRIT 32.1 % (42.0-52.0); HEMOGLOBIN 10.7 g/dl (13.5-17.5); MEAN CORPUSCULAR HEMOGLOBIN 30.8 pg (27.0-33.0); MEAN CORPUSCULAR HGB CONC 33.3 g/dl (32.0-36.5); MEAN CORPUSCULAR VOLUME 92.5 fl (80.0-96.0); PLATELET COUNT, AUTOMATED 237 10^3/uL (150-450); RED BLOOD COUNT 3.47 10^6/uL (4.30-6.10); WHITE BLOOD COUNT 9.3 10^3/uL (4.0-10.0)
[2019-06-27 06:53] LABS: BLOOD UREA NITROGEN 15 MG/DL (7-18); CALCIUM LEVEL 7.9 MG/DL (8.8-10.2); CARBON DIOXIDE LEVEL 24 MEQ/L (21-32); CHLORIDE LEVEL 113 MEQ/L (98-107); CREATININE FOR GFR 1.07 MG/DL (0.70-1.30); GLOMERULAR FILTRATION RATE > 60.0 (>35); GLUCOSE, FASTING 92 MG/DL (70-100); MAGNESIUM LEVEL 1.9 MG/DL (1.8-2.4); PHOSPHORUS LEVEL 1.7 MG/DL (2.5-4.9); POTASSIUM SERUM 3.8 MEQ/L (3.5-5.1); SODIUM LEVEL 143 MEQ/L (136-145)
[2019-06-27] MEDS: MAGNESIUM CHLORIDE 64 MG TABCR (SLO MAG) PO SCH (08:52)
[2019-06-27] MEDS: FINASTERIDE 5 MG TAB PO SCH (08:52)
[2019-06-27] MEDS: OMEPRAZOLE 20 MG CAP PO SCH (08:52)
[2019-06-27] MEDS: IRON POLYSAC (NIFEREX) 150 MG CAP PO SCH ×2 (08:52→20:52)
--- NOTE | 2019-06-27 08:59 | IPNPDOC ---
Text Note Date of Service The patient was seen on 06/27/19. NOTE Not any acute events overnight. He slept well. Patient denies any episodes of syncope, dizziness, nausea, vomiting, chest pain, palpitations, diarrhea Objective Physical Examination General Exam: Positive: Cooperative Eye Exam: PERRLA Neck Exam: Supple, EOMI Chest Exam: Positive: Clear to auscultation Heart Exam: Positive: Rate Normal, S1-S2 Scrotum: large hydrocele bilaterally Abdomen Exam: Negative: Normal bowel sounds Neuro Exam: Cranial Nerves 3-12 NL, Reflexes 2+ Assessment/Plan Pt is 89 yo male with PMH CKD, urinary retention presented to the hospital after mechanical fall, he was found to have rhabdomyolysis and MURIEL. Await placement disposition. Problems: (1) MURIEL (acute kidney injury) Secondary to rhabdomyolysis and dehydration Resolved (2) Rhabdomyolysis Kidney function improved. Continue to monitor UA, urine output, CPK, encourage hydration PO Continue IV hydration (3) Renal failure Resolved 2/2 rhabdomyolysis and volume contraction. Continue to monitor. (4) Fall Chronic Continue PT/OT. station worker on board. Await SNF dispo (5) Altered mental state Resolved 2/2 metabolic encephalopathy, seizure or TIA. 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
[2019-06-27 09:25] LABS: ALBUMIN 2.6 GM/DL (3.2-5.2); ALT/SGPT 35 U/L (12-78); BILIRUBIN,DIRECT 0.1 MG/DL (0.0-0.2); BILIRUBIN,TOTAL 0.3 MG/DL (0.2-1.0); CPK CREATINE PHOSPHOKINASE 111 U/L (39-308); TOTAL PROTEIN 5.8 GM/DL (6.4-8.2)
[2019-06-27] MEDS ORDERED: POTASSIUM CHLORIDE 10 MEQ SR TABLET PO ONE (10:00)
[2019-06-27 14:00] VITALS: BP_SYST 106; BP_SYST 109; BP_SYST 114; BP_DIAS 55; BP_DIAS 60; BP_DIAS 62; BP_DIAS 68
[2019-06-27] MEDS: DOXYCYCLINE HYCLATE 100 MG TAB PO SCH (15:58)
[2019-06-27] MEDS: TAMSULOSIN 0.4 MG CAP PO SCH (20:52)
[2019-06-27 22:00] VITALS: BP 109/55
[2019-06-28] MEDS: NS 1,000 ML IV SCH ×3 (00:08→20:31)
[2019-06-28 06:00] VITALS: BP 111/54
[2019-06-28] MEDS: SLF 3 ML SYR IV SCH ×3 (06:00→20:31)
[2019-06-28 07:00] VITALS: BP_SYST 107; BP_SYST 110; BP_SYST 119; BP_DIAS 55; BP_DIAS 58; BP_DIAS 97
[2019-06-28] MEDS: MAGNESIUM CHLORIDE 64 MG TABCR (SLO MAG) PO SCH (09:00)
[2019-06-28] MEDS: OMEPRAZOLE 20 MG CAP PO SCH (10:06)
[2019-06-28] MEDS: FINASTERIDE 5 MG TAB PO SCH (10:06)
[2019-06-28] MEDS: IRON POLYSAC (NIFEREX) 150 MG CAP PO SCH ×2 (10:06→20:42)
[2019-06-28 14:00] VITALS: BP_SYST 121; BP_SYST 150; BP_DIAS 55; BP_DIAS 73
[2019-06-28] MEDS: DOXYCYCLINE HYCLATE 100 MG TAB PO SCH (14:54)
[2019-06-28] MEDS: TAMSULOSIN 0.4 MG CAP PO SCH (20:42)
[2019-06-28 22:00] VITALS: BP 132/61
[2019-06-29] MEDS: NS 1,000 ML IV SCH (05:58)
[2019-06-29] MEDS: SLF 3 ML SYR IV SCH ×3 (05:58→20:58)
[2019-06-29 06:00] VITALS: BP 128/60
[2019-06-29] MEDS: MAGNESIUM CHLORIDE 64 MG TABCR (SLO MAG) PO SCH (09:00)
[2019-06-29] MEDS: OMEPRAZOLE 20 MG CAP PO SCH (10:15)
[2019-06-29] MEDS: FINASTERIDE 5 MG TAB PO SCH (10:15)
[2019-06-29] MEDS: IRON POLYSAC (NIFEREX) 150 MG CAP PO SCH ×2 (10:16→20:57)
[2019-06-29] MEDS: FLUTICASONE 0.05% CREAM 30GM (CUTIVATE) TOP PRN (10:16)
[2019-06-29 10:34] LABS: HEMATOCRIT 30.7 % (42.0-52.0); HEMOGLOBIN 10.3 g/dl (13.5-17.5); MEAN CORPUSCULAR HEMOGLOBIN 32.3 pg (27.0-33.0); MEAN CORPUSCULAR HGB CONC 33.6 g/dl (32.0-36.5); MEAN CORPUSCULAR VOLUME 96.2 fl (80.0-96.0); PLATELET COUNT, AUTOMATED 211 10^3/uL (150-450); RED BLOOD COUNT 3.19 10^6/uL (4.30-6.10); WHITE BLOOD COUNT 8.1 10^3/uL (4.0-10.0)
[2019-06-29 10:58] LABS: BLOOD UREA NITROGEN 10 MG/DL (7-18); CALCIUM LEVEL 7.2 MG/DL (8.8-10.2); CARBON DIOXIDE LEVEL 21 MEQ/L (21-32); CHLORIDE LEVEL 116 MEQ/L (98-107); CREATININE FOR GFR 1.11 MG/DL (0.70-1.30); GLOMERULAR FILTRATION RATE > 60.0 (>35); GLUCOSE, FASTING 125 MG/DL (70-100); POTASSIUM SERUM 3.8 MEQ/L (3.5-5.1); SODIUM LEVEL 145 MEQ/L (136-145)
[2019-06-29] MEDS: DOXYCYCLINE HYCLATE 100 MG TAB PO SCH (14:27)
[2019-06-29] MEDS: TAMSULOSIN 0.4 MG CAP PO SCH (20:57)
[2019-06-29 22:00] VITALS: BP 132/63
[2019-06-30 06:00] VITALS: BP 127/62
[2019-06-30] MEDS: SLF 3 ML SYR IV SCH ×3 (06:00→21:56)
[2019-06-30] MEDS: OMEPRAZOLE 20 MG CAP PO SCH (09:18)
[2019-06-30] MEDS: IRON POLYSAC (NIFEREX) 150 MG CAP PO SCH ×2 (09:18→21:06)
[2019-06-30] MEDS: MAGNESIUM CHLORIDE 64 MG TABCR (SLO MAG) PO SCH (09:18)
[2019-06-30] MEDS: FINASTERIDE 5 MG TAB PO SCH (09:18)
[2019-06-30] MEDS: DOXYCYCLINE HYCLATE 100 MG TAB PO SCH (15:47)
[2019-06-30] MEDS: TAMSULOSIN 0.4 MG CAP PO SCH (21:06)
[2019-07-01 06:00] VITALS: BP 133/60
[2019-07-01] MEDS: SLF 3 ML SYR IV SCH ×2 (06:00→14:00)
[2019-07-01] MEDS: IRON POLYSAC (NIFEREX) 150 MG CAP PO SCH ×2 (09:14→21:23)
[2019-07-01] MEDS: MAGNESIUM CHLORIDE 64 MG TABCR (SLO MAG) PO SCH (09:15)
[2019-07-01] MEDS: OMEPRAZOLE 20 MG CAP PO SCH (09:15)
[2019-07-01] MEDS: FINASTERIDE 5 MG TAB PO SCH (09:15)
[2019-07-01] MEDS: DOXYCYCLINE HYCLATE 100 MG TAB PO SCH (16:03)
[2019-07-01] MEDS: MIRALAX *UNIT DOSE* 17GM PACKET PO SCH (16:03)
[2019-07-01] MEDS: TAMSULOSIN 0.4 MG CAP PO SCH (21:23)
[2019-07-02 06:00] VITALS: BP 127/60
[2019-07-02] MEDS: MIRALAX *UNIT DOSE* 17GM PACKET PO SCH (09:00)
[2019-07-02] MEDS: OMEPRAZOLE 20 MG CAP PO SCH (09:01)
[2019-07-02] MEDS: FINASTERIDE 5 MG TAB PO SCH (09:01)
[2019-07-02] MEDS: MAGNESIUM CHLORIDE 64 MG TABCR (SLO MAG) PO SCH (09:01)
[2019-07-02] MEDS: IRON POLYSAC (NIFEREX) 150 MG CAP PO SCH ×2 (09:01→20:49)
[2019-07-02] MEDS: DOXYCYCLINE HYCLATE 100 MG TAB PO SCH (14:05)
[2019-07-02] MEDS: TAMSULOSIN 0.4 MG CAP PO SCH (20:49)
[2019-07-03 06:00] VITALS: BP 134/62
[2019-07-03] MEDS: MAGNESIUM CHLORIDE 64 MG TABCR (SLO MAG) PO SCH (08:09)
[2019-07-03] MEDS: IRON POLYSAC (NIFEREX) 150 MG CAP PO SCH (08:09)
[2019-07-03] MEDS: FINASTERIDE 5 MG TAB PO SCH (08:09)
[2019-07-03] MEDS: OMEPRAZOLE 20 MG CAP PO SCH (08:09)
[2019-07-03] MEDS: MIRALAX *UNIT DOSE* 17GM PACKET PO SCH (08:10)
[2019-07-03] MEDS ORDERED: FINA5TAB2 PO ×2 (08:39→09:21)
[2019-07-03] MEDS ORDERED: Iron Polysaccharide PO (08:39)
[2019-07-03] MEDS ORDERED: OMEP-218 PO ×2 (08:39→09:21)
[2019-07-03] MEDS ORDERED: MAGN64TASA PO (08:39)
[2019-07-03] MEDS ORDERED: MAGN1TAB39 PO (09:21)
--- NOTE | 2019-07-03 09:28 | DS.PDOC ---
Discharge Summary General Date of Admission Jun 18, 2019 at 20:28 Date of Discharge Jul 03 2019 Attending Physician: ALONZO TAY MD Discharge Summary PROCEDURES PERFORMED DURING STAY: None. ADMITTING DIAGNOSES: 1. Acute Kidney Injury 2. Rhabdomyolysis DISCHARGE DIAGNOSES: 1. Acute Kidney Injury 2. Rhabdomyolysis 3. Fall 4. Urinary retention COMPLICATIONS/CHIEF COMPLAINT: Muriel, Rhabdomyloysis. HISTORY OF PRESENT ILLNESS: Mr. Richardson is an 81 atrial male who was brought to the ED by the ambulance after his neighbors found him on the ground. According to his daughter he likely had a fall sometime in between 8 and 9 AM this morning, which is a time but usually goes into the shower, and was found on the shower floor covered with emesis and urine about 6 hours later. Though he has lapses in his memory regarding the events that occurred earlier on today, the patient remembers tripping, hitting his head on one of the stairs going into the shower, and not being able to get up. The patient lives on his own, at his baseline he ambulates with a rolling walker. He denies having any abdominal pain, headaches, dizziness, upper respiratory tract symptoms, nausea, vomiting, diarrhea, chest pain, fevers, chills, peters dizziness yesterday over the last few days. HOSPITAL COURSE: (1) MURIEL (acute kidney injury) Secondary to rhabdomyolysis and dehydration Resolved (2) Rhabdomyolysis Kidney function improved. Continue to monitor UA, urine output, CPK, encourage hydration PO Continue IV hydration (3) Renal failure Resolved 2/2 rhabdomyolysis and volume contraction. Continue to monitor. (4) Fall Chronic Continue PT/OT. 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 Await SNF dispo (5) Altered mental state Resolved 2/2 metabolic encephalopathy, seizure or TIA. 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 ALLERGIES: Please see below. PHYSICAL EXAMINATION ON DISCHARGE: VITAL SIGNS: Please see below. GENERAL: NAD EXTREMITIES: no c/c/e SKIN: intact LABORATORY DATA: Please see below. PROGNOSIS: fair ACTIVITY: As tolerated DIET: TOLERATED DISCHARGE PLAN: TO REHAB DISPOSITION: . TO REHAB DISCHARGE INSTRUCTIONS: 1. Follow up with PMD after dc from rehab DISCHARGE CONDITION: Stable TIME SPENT ON DISCHARGE: Greater than 30 mins Vital Signs/I&Os Vital Signs Date Time Temp Pulse Resp B/P (MAP) Pulse Ox O2 Delivery O2 Flow Rate FiO2 07/03/19 06:00 97.9 84 18 134/62 (86) 98 I&O- Last 24 Hours up to 6 AM 07/03/19 05:59 Intake Total 1208 ml Output Total 2775 ml Balance -1567 ml Microbiology Microbiology 06/25/19 Stool Occult Blood (RANDAL) - Final, Complete Discharge Medications Scheduled Finasteride (Finasteride) 5 Mg Tablet, 5 MG PO DAILY Lisinopril (Lisinopril) 20 Mg Tablet, 20 MG PO DAILY, (Reported) Magnesium Chloride (Magnesium Chloride) 64 Mg Tablet.dr, 64 MG PO DAILY Sherman-3 Fatty Acids/Fish Oil (Fish Oil 1,000 mg Capsule) 1 Each Capsule, 1,000 MG PO DAILY, (Reported) Omeprazole (Omeprazole) 20 Mg Capsule.dr, 20 MG PO DAILY Simvastatin (Simvastatin) 40 Mg Tablet, 40 MG PO DAILY, (Reported) Terazosin HCl (Terazosin HCl) 5 Mg Capsule, 5 MG PO DAILY, (Reported) [Iron Polysaccharide] 150 MG CAP, 150 MG PO BID Scheduled PRN Ibuprofen (Ibuprofen) 600 Mg Tablet, 600 MG PO TID PRN for PAIN, (Reported) Allergies Coded Allergies: No Known Allergies (Unverified , 06/18/19) ALONZO TAY MD Jul 03, 2019 09:28
== END 2019-07-03 10:57 | DRG 682 ==
LOC: M ED 16:38 → EDBD 16:38 → M ED INP 20:28 → M PCU 23:12 → M MSPAV 06-22 14:09
PROVIDERS: ADMIT Internal Medicine; ATTEND Internal Medicine
DX: N17.9 Acute kidney failure, unspecified (principal); G93.41 Metabolic encephalopathy; M62.82 Rhabdomyolysis; E87.2 Acidosis; E87.0 Hyperosmolality and hypernatremia; B15.9 Hepatitis A without hepatic coma; S00.93XA Contusion of unspecified part of head, initial encounter; I10 Essential (primary) hypertension; R26.81 Unsteadiness on feet; E83.39 Other disorders of phosphorus metabolism; M19.90 Unspecified osteoarthritis, unspecified site; F03.90 Unspecified dementia, unspecified severity, without behavioral disturbance, psychotic disturbance, mood disturbance, and anxiety; L71.9 Rosacea, unspecified; E86.0 Dehydration; N13.9 Obstructive and reflux uropathy, unspecified; R33.9 Retention of urine, unspecified; N25.81 Secondary hyperparathyroidism of renal origin; N40.1 Benign prostatic hyperplasia with lower urinary tract symptoms; N43.3 Hydrocele, unspecified; R41.82 Altered mental status, unspecified; E87.5 Hyperkalemia; R32 Unspecified urinary incontinence; H91.93 Unspecified hearing loss, bilateral; Z79.899 Other long term (current) drug therapy; W18.2XXA Fall in (into) shower or empty bathtub, initial encounter; Y93.E1 Activity, personal bathing and showering; Y92.012 Bathroom of single-family (private) house as the place of occurrence of the external cause